=== PATIENT | male | born 1970 | race Two or more races ===

== ENCOUNTER 2024-08-17 16:25 | Inpatient (IN) | payer MEDICAID, SELFPAY ==
[2024-08-17] VITALS (7 sets, daily range): BP systolic 135–154; BP diastolic 70–86; PULSE 92–120; RESP 16–91; TEMP 36.9–39.1; O2SAT 90–96; BMI 30.4
--- NOTE | 2024-08-17 16:51 | XR_ITS ---
Examination: PA lateral chest 2 views TECHNIQUE: Upright PA lateral chest 2 views Exam date and time: August 17, 2024 1713 hours INDICATIONS: Sepsis protocol. FINDINGS: Bilateral diffuse pneumonia, severe in the left lung Normal heart size The osseous structures are intact IMPRESSION: Extensive bilateral pneumonia
--- NOTE | 2024-08-17 16:51 | EKG_ITS ---
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
--- NOTE | 2024-08-17 16:53 | PD.EDADULT ---
ED General RME/HPI General Chief complaint: Flu Like Symptoms Stated complaint: SORE THROAT, WEAKNESS, SOB Time Seen by Provider: 08/17/24 16:51 Arrival date/time: 08/17/24 16:25 CC: Body aches fever chills right leg pain HPI ongoing for the past 15 days. Started antibiotics from PCP with no relief no other family members are ill in the household. The patient has no primary care doctor no primary care diagnosis and takes no medications. Related Data Home Medications ?Medication ?Instructions ?Recorded ?Confirmed benzonatate 100 mg capsule 100 mg PO TID 08/18/24 08/18/24 cetirizine 10 mg tablet 10 mg QDAY 08/18/24 08/18/24 fluticasone propionate 50 1 spray intranasal BID 08/18/24 08/18/24 mcg/actuation nasal spray,suspension Previous Rx's ?Medication ?Instructions ?Recorded blood-glucose sensor (FreeStyle #1 ea 08/19/24 Cory 3 Plus Sensor device) dextromethorphan-guaifenesin 30 1 tab PO BID PRN Cough 30 days #30 08/19/24 mg-600 mg tablet extended tabs hr (Mucinex DM) fluconazole 200 mg tablet 400 mg (2 x 200 mg) PO QDAY 30 08/19/24 days #60 tabs glucagon 0.5 mg/0.1 mL 0.5 mg (0.1 mL) subcut QDAY PRN 08/19/24 subcutaneous auto-injector (Gvoke hypoglycemia #0.1 mL HypoPen 1-Pack) insulin degludec 100 unit/mL (3 20 unit (0.2 mL) subcut HS #15 mL 08/19/24 mL) subcutaneous pen (Tresiba FlexTouch U-100 insulin) lisinopril 10 mg tablet 10 mg PO QDAY #30 tabs 08/19/24 metformin 500 mg tablet 500 mg PO BID #30 tabs 08/19/24 albuterol sulfate 90 mcg/actuation 1 inh inhalation QID PRN shortness 08/20/24 aerosol inhaler of breath or wheezing #6.7 grams levofloxacin 750 mg tablet 750 mg PO QDAY 7 days #7 tabs 08/20/24 pen needle, diabetic 29 gauge x #100 ea 08/20/2408/05 (Ultra-Thin II Insulin Pen [place]) Allergies Allergy/AdvReac Type Severity Reaction Status Date / Time No Known Allergies Allergy Verified 08/17/24 16:33 Review of Systems Review of Systems Narrative Review of Systems: GEN: + fever, + chills, no weight loss, + body aches EYES: No discharge, no visual changes, no pain HEENT: No ear pain, no congestion, no sore throat PULM: No shortness of breath, no cough, no congestion CV: No chest pain, no dyspnea on exertion, no palpitations GI: No nausea, no vomiting, no diarrhea, no pain, no constipation : No frequency, no urgency, no dysuria MUSC/SKEL: No joint pain, no back pain+ rt leg pain SKIN: No rash PSYCH: No hallucinations, no depression HEME/LYMPH: No easy bleeding or bruising tendencies NEURO: No weakness, no headache Past Medical History Past Medical History CARDIAC: Negative Cardiac Disorders or Congestive Heart Failure RESPIRATORY: Negative Chronic Obstructive Pulmonary Disease (COPD) or Asthma GENITOURINARY: Negative Renal Disease ENDOCRINE: Negative Diabetes Mellitus Type 1 or Diabetes Mellitus Type 2 HEMATOLOGIC: Negative Sickle Cell Disease Social History SMOKING STATUS: Former smoker ED Exam Narrative Physical exam: [General: In mild discomfort but not in any acute distress Head normocephalic HEENT: Within acceptable limits Neck is supple nontender Chest equal chest rise nontender to palpation Respiratory: Clear to auscultation no wheezes crackles or rubs CV: Rate rhythm is regular no murmurs rubs or clicks Abdomen is distended secondary to body habitus soft nontender no masses positive bowel sounds all 4 quadrants Back: No CVA tenderness no spinous process tenderness from cervical spine thoracic and lumbar spine Skin: Intact no petechiae rash induration ulceration or crepitus Extremities: Moving all extremities against resistance cap refill less than 2 seconds neurosensory intact Neuro: Awake alert oriented x3 Glascow coma 15 no focal deficits] Course Quality Measures none Orders Category Date Time Status Bedside Blood Glucose ACHS Care 08/17/24 23:54 Completed Bedside COVID-19 Antigen Test NOW Care 08/17/24 16:51 Completed Bedside Influenza A&B Antigen Test NOW Care 08/17/24 16:[address] Screening NOW Care 08/17/24 21:22 Completed Camp Nurse STAT Care 08/17/24 16:51 Completed Continuous Pulse Oximetry STAT Care 08/17/24 16:51 Completed EKG (ED ONLY) *Do not use* NOW Care 08/17/24 16:51 Completed In and Out Catheter X1PRN Care 08/17/24 16:51 Completed Insert IV NOW Care 08/17/24 16:51 Completed NPO STAT Care 08/17/24 16:51 Completed Saline [Insert IV] NOW Care 08/17/24 16:56 Completed Strict Intake and Output Routine Care 08/17/24 16:51 Ordered Consult to General Surgery Routine Cons 08/17/24 23:[address] abdomen pelvis w con Stat Exams 08/17/24 21:21 Completed EKG (ED Only) Stat Exams 08/17/24 16:51 Draft NM HIDA w pharm Routine Exams 08/17/24 23:56 Completed US gall bladder Stat Exams 08/17/24 19:23 Completed US venous doppler LE RT Stat Exams 08/17/24 16:56 Completed XR chest 1V SEPSIS PROTOCOL Stat Exams 08/17/24 16:51 Completed B-Type Natriuretic Peptide Stat Lab 08/17/24 17:10 Completed Beta Hydroxybutyrate Stat Lab 08/17/24 21:07 Completed Blood Culture (Lab) Stat Lab 08/17/24 17:04 Results CBC Stat Lab 08/17/24 17:10 Completed Cocci Serology IgM with reflex to IgG [Cocci Serology, Lab 08/17/24 17:10 Completed Unk History] Stat Comprehensive Metabolic Panel Stat Lab 08/17/24 17:10 Completed Hemoglobin A1C [Glycohemoglobin w (eAG)] Stat Lab 08/17/24 21:07 Completed LDH (Lactate Dehydrogenase) Stat Lab 08/17/24 17:10 Completed Lactate (Lactic Acid) Stat Lab 08/17/24 17:10 Completed Lactic Acid, 3 HR Stat Lab 08/17/24 21:07 Completed Lipase Stat Lab 08/17/24 17:10 Completed Lipid Panel Stat Lab 08/17/24 21:07 Completed Magnesium Stat Lab 08/17/24 17:10 Completed Partial Thromboplastin Time Stat Lab 08/17/24 17:10 Completed Phosphorous Stat Lab 08/17/24 17:10 Completed Procalcitonin Stat Lab 08/17/24 17:10 Completed Prothrombin Time with INR Stat Lab 08/17/24 17:10 Completed Troponin I Stat Lab 08/17/24 17:10 Completed Urinalysis Stat Lab 08/17/24 15:49 Completed Urine Culture Stat Lab 08/17/24 15:49 Completed Acetaminophen Tab [Tylenol Tab] Med 08/17/24 16:56 Discontinued 650 mg PO X1 ONE Dextrose 50% Syr [D50w Syringe Abboject] Med 08/17/24 23:54 Discontinued 25 ml IV Q15MIN PRN Dextrose 50% Syr [D50w Syringe Abboject] Med 08/17/24 23:54 Discontinued 50 ml IV Q15MIN PRN Glucagon Inj Med 08/17/24 23:54 Discontinued 1 mg IM Q15MIN PRN INSULIN LISPRO (AdmeLOG) [HumaLOG] Med 08/18/24 07:30 Discontinued See Protocol SC AC Insulin Glargine Inj [Lantus Inj] Med 08/18/24 09:00 Discontinued 10 unit SC QDAY Piper/Tazo 3.375 gm [Zosyn] Med 08/18/24 06:00 Discontinued 3.375 gm in 50 ml IV Q8HR Piper/Tazo 3.375 gm [Zosyn] Med 08/17/24 23:45 Discontinued 3.375 gm in 50 ml IV X1 Sod Phos Additive [NaPhos Additive] 22.5 mmol Med 08/17/24 23:54 Discontinued Sodium Chloride 0.9% 500 ml [Ns] 500 ml IV X1 Sodium Chloride 0.9% 1000 ml [Ns] 1,000 ml Med 08/17/24 16:57 Discontinued IV 999 mls/hr Sodium Chloride 0.9% 1000 ml [Ns] 1,000 ml Med 08/17/24 16:57 Discontinued IV 999 mls/hr cefTRIAXone/D5w 1gm IV premix [Rocephin/D5w 1gm IV Med 08/17/24 17:30 Discontinued premix] 50 ml IV X1 metroNIDAZOLE/NS 500 MG IVPB [Flagyl 500 mg IV] Med 08/17/24 23:54 Discontinued 500 mg in 100 ml IV X1 Oxygen Delivery NOW RT 08/17/24 16:51 Completed Vital Signs Vital signs: Vital Signs Temperature 102.4 F H 08/17/24 16:53 Pulse Rate 120 H 08/17/24 16:53 Respiratory Rate 28 H 08/17/24 16:53 Blood Pressure 154/80 H 08/17/24 16:53 Pulse Oximetry (%) 90 L 08/17/24 16:53 Oxygen Delivery Method Room Air 08/17/24 16:53 [facility] Patient data External records reviewed:: [facility] previous records Clinical information provided by:: patient Social determinants that could affect healthcare access:: none Patient has the following chronic illnesses:: None How is presenting disease/condition affected by chronic disease/condition?: uneffected by Evaluation data The following diagnostics were reviewed and interpreted by me:: lab results, radiology exam(s) and EKG tracing(s) Lab and/or radiology exams considered but not ordered:: EKG performed at 1658 shows a ventricular rate of 119 NC interval 116 QRS of 85 QTc of 422 sinus tachycardia. CBC shows a leukocytosis of 14.5 no anemia thrombocytopenia Coags within acceptable limits CMP shows a sodium of 128 potassium 3.6 chloride 96 CO2 of 24.5 BUN of 13 creatinine 0.9 with a blood sugar of 377. Transaminitis with a T. bili of 1.3 Lipase of 60 Significant bilateral pneumonia on chest x-ray as interpreted me read by radiology Interpretation Summary: Sepsis pneumonia Medications Medications considered but not ordered:: None Medication administrations:: Medication Administration History Discontinued Medications Acetaminophen (Acetaminophen 325 Mg Tablet) 650 mg PO X1 ONE Stop: 08/17/24 16:57 Last Admin: 08/17/24 17:17 Dose: 650 mg Documented By: Acetaminophen (Acetaminophen 325 Mg Tablet) 650 mg PO Q6H PRN PRN Reason: Fever >101.5 Stop: 09/17/24 00:00 Hydrocodone Bitart/Acetaminophen (Hydrocodone/Apap 5/325 Tablet) 1 tab PO Q4HR PRN PRN Reason: PAIN SCALE 4-6 (Moderate Stop: 08/23/24 00:00 Last Admin: 08/20/24 09:41 Dose: 1 tab Documented By: Admin: 08/19/24 17:46 Dose: 1 tab Documented By: Admin: 08/19/24 02:03 Dose: 1 tab Documented By: MRG Albuterol/Ipratropium (Albuterol/Ipratropium (Duoneb) Rt Vee 3 Ml Nebu) 3 ml INH Q6HRRT PRN PRN Reason: SHORTNESS OF BREATH OR WHEEZE Stop: 09/17/24 06:59 Amoxicillin/Clavulanate Potassium (Amoxicillin/Pot Clav 875 Tablet) 1 tab PO BID THAIS Stop: 08/27/24 08:59 Last Admin: 08/20/24 09:38 Dose: 1 tab Documented By: SHANNEN Dextrose (Dextrose 50%-Water Inj 50 Ml Syringe) 25 ml IV Q15MIN PRN PRN Reason: BG 50-70 responsive npo pt Stop: 09/16/24 23:53 Dextrose (Dextrose 50%-Water Inj 50 Ml Syringe) 50 ml IV Q15MIN PRN PRN Reason: BG <50 OR BG <70 & pt unresponsive Stop: 09/16/24 23:53 Enoxaparin Sodium (Enoxaparin Sod Inj 40 Mg/0.4 Ml Syringe) 40 mg SC QDAY [facility] Stop: 09/01/24 08:59 Last Admin: 08/20/24 09:19 Dose: 40 mg Documented By: Admin: 08/19/24 09:08 Dose: 40 mg Documented By: Admin: 08/18/24 08:05 Dose: 40 mg Documented By: TM Fluconazole (Fluconazole 100 Mg Tablet) 400 mg PO QDAY [facility] Stop: 08/25/24 15:29 Last Admin: 08/20/24 09:20 Dose: 400 mg Documented By: Admin: 08/19/24 09:05 Dose: 400 mg Documented By: Admin: 08/18/24 16:26 Dose: 400 mg Documented By: TM Fluconazole (Fluconazole 100 Mg Tablet) 400 mg PO 1400 [facility] Stop: 08/25/24 13:59 Glucagon (Glucagon Inj 1 Mg Vial) 1 mg IM Q15MIN PRN PRN Reason: BG <70, and no IV access Guaifenesin/Dextromethorphan (Guaifenesin/Dm Tablet) 1 each PO BID PRN PRN Reason: COUGH Stop: 09/17/24 05:40 Sodium Chloride (Ns) 1,000 mls @ 999 mls/hr IV .Q1H1M ONE Stop: 08/17/24 17:57 Last Infusion: 08/17/24 22:27 Dose: Infused Documented By: Admin: 08/17/24 21:08 Dose: 999 mls/hr Documented By: EF Sodium Chloride (Ns) 1,000 mls @ 999 mls/hr IV .Q1H1M ONE Stop: 08/17/24 17:57 Last Infusion: 08/17/24 22:27 Dose: Infused Documented By: Admin: 08/17/24 21:08 Dose: 999 mls/hr Documented By: EF Ceftriaxone Sodium/Dextrose (Rocephin/D5w 1gm Iv Premix) 50 mls @ 100 mls/hr IV X1 ONE Stop: 08/17/24 17:59 Last Infusion: 08/17/24 21:46 Dose: Infused Documented By: Admin: 08/17/24 21:16 Dose: 100 mls/hr Documented By: EF Metronidazole (Flagyl 500 Mg Iv) 500 mg in 100 mls @ 100 mls/hr IV X1 ONE Stop: 08/18/24 00:53 Last Infusion: 08/18/24 02:07 Dose: Infused Documented By: Admin: 08/18/24 01:07 Dose: 100 mls/hr Documented By: EF Sodium Phosphate 22.5 mmol/ (Sodium Chloride) 507.5 mls @ 82.778 mls/hr IV X1 ONE Stop: 08/18/24 06:01 Last Admin: 08/18/24 00:56 Dose: Not Given Documented By: EF Non-Admin Reason: Cancelled by Provider Piperacillin/Tazobactam/Dextrose (Zosyn) 3.375 gm in 50 mls @ 12.5 mls/hr IV Q8HR THAIS Stop: 08/25/24 05:59 Last Admin: 08/20/24 05:14 Dose: 12.5 mls/hr Documented By: Infusion: 08/20/24 01:10 Dose: Infused Documented By: MRSteven Admin: 08/19/24 21:10 Dose: 12.5 mls/hr Documented By: MRSteven Admin: 08/19/24 14:09 Dose: Not Given Documented By: YAJAIRA Non-Admin Reason: Not In Room Infusion: 08/19/24 09:41 Dose: Infused Documented By: Admin: 08/19/24 05:41 Dose: 12.5 mls/hr Documented By: MRSteven Infusion: 08/19/24 01:31 Dose: Infused Documented By: MRSteven Admin: 08/18/24 21:31 Dose: 12.5 mls/hr Documented By: MRSteven Infusion: 08/18/24 20:26 Dose: Infused Documented By: MRSteven Admin: 08/18/24 16:26 Dose: 12.5 mls/hr Documented By: Infusion: 08/18/24 09:58 Dose: Infused Documented By: Admin: 08/18/24 05:58 Dose: 12.5 mls/hr Documented By: AM Piperacillin/Tazobactam/Dextrose (Zosyn) 3.375 gm in 50 mls @ 100 mls/hr IV X1 ONE Stop: 08/18/24 00:14 Last Infusion: 08/18/24 00:47 Dose: Infused Documented By: Admin: 08/18/24 00:17 Dose: 100 mls/hr Documented By: ANDREW Sodium Chloride (Ns) 1,000 mls @ 100 mls/hr IV .Q10H THAIS Stop: 09/17/24 00:14 Last Admin: 08/19/24 09:12 Dose: 100 mls/hr Documented By: Infusion: 08/19/24 08:52 Dose: Infused Documented By: Admin: 08/18/24 22:52 Dose: 100 mls/hr Documented By: Infusion: 08/18/24 21:28 Dose: Infused Documented By: MRSteven Admin: 08/18/24 11:28 Dose: 100 mls/hr Documented By: Infusion: 08/18/24 11:06 Dose: Infused Documented By: Admin: 08/18/24 01:06 Dose: 100 mls/hr Documented By: CLIFF Sterile Water (Sterile Water) Confirm Administered Dose 10 mls @ ud .ROUTE .STK-MED ONE Stop: 08/18/24 13:36 Last Admin: 08/18/24 19:39 Dose: Not Given Documented By: MRSteven Non-Admin Reason: Discontinued Magnesium Sulfate (Magnesium Sulfate Ivpb) 2 gm in 50 mls @ 25 mls/hr IV X1 ONE Stop: 08/19/24 10:15 Last Infusion: 08/19/24 11:05 Dose: Infused Documented By: Admin: 08/19/24 09:05 Dose: 25 mls/hr Documented By: YAJAIRA Insulin Glargine (Insulin Glargine (Lantus) 5 Unit/0.05 Ml (Per 5 Units)) 10 unit SC QDAY THAIS Stop: 09/17/24 08:59 Last Admin: 08/18/24 08:04 Dose: 10 unit Documented By: TRINI Co-signed By: LINDA Insulin Glargine (Insulin Glargine (Lantus) 5 Unit/0.05 Ml (Per 5 Units)) 15 unit SC QDAY [facility] Stop: 09/18/24 08:59 Insulin Glargine (Insulin Glargine (Lantus) 5 Unit/0.05 Ml (Per 5 Units)) 18 unit SC QDAY THAIS Stop: 09/19/24 08:59 Last Admin: 08/20/24 09:18 Dose: 18 unit Documented By: NC Co-signed By: GAT[place]ika Insulin Glargine (Insulin Glargine (Lantus) 5 Unit/0.05 Ml (Per 5 Units)) 3 unit SC X1 ONE Stop: 08/19/24 08:16 Last Admin: 08/19/24 09:07 Dose: 3 unit Documented By: DM Co-signed By: CS Insulin Human Lispro (Insulin Lispro (Admelog) 1 Unit/0.01 Ml Unit) 0 unit SC AC [facility]; Protocol Stop: 09/17/24 07:29 Last Admin: 08/18/24 11:39 Dose: Not Given Documented By: TM Non-Admin Reason: NPO Admin: 08/18/24 08:05 Dose: 4 unit Documented By: TM Co-signed By: CV Insulin Human Lispro (Insulin Lispro (Admelog) 1 Unit/0.01 Ml Unit) 0 unit SC AC [facility]; Protocol Stop: 09/17/24 07:29 Last Admin: 08/20/24 11:51 Dose: 8 unit Documented By: NC Co-signed By: [place] Admin: 08/20/24 07:56 Dose: 4 unit Documented By: NC Co-signed By: [place] Admin: 08/19/24 17:42 Dose: 8 unit Documented By: DM Co-signed By: Admin: 08/19/24 11:53 Dose: 15 unit Documented By: DM Co-signed By: REBECCA Admin: 08/19/24 07:57 Dose: 8 unit Documented By: DM Co-signed By: Admin: 08/18/24 16:15 Dose: Not Given Documented By: TM Non-Admin Reason: NPO Insulin Human Lispro (Insulin Lispro (Admelog) 1 Unit/0.01 Ml Unit) 3 unit SC TIDWM [facility] Stop: 09/18/24 11:59 Last Admin: 08/20/24 11:52 Dose: 3 unit Documented By: NC Co-signed By: [place] Admin: 08/20/24 07:56 Dose: 3 unit Documented By: SHANNEN Co-signed By: [place] Admin: 08/19/24 17:41 Dose: 3 unit Documented By: YAJAIRA Co-signed By: Admin: 08/19/24 11:53 Dose: 3 unit Documented By: YAJAIRA Co-signed By: REBECCA Levofloxacin (Levofloxacin 250 Mg Tablet) 750 mg PO QDAY [facility] Stop: 08/27/24 11:14 Last Admin: 08/20/24 11:51 Dose: 750 mg Documented By: NC Lisinopril (Lisinopril 2.5 Mg Tablet) 10 mg PO QDAY THAIS Stop: 09/18/24 10:29 Last Admin: 08/20/24 09:20 Dose: 10 mg Documented By: Admin: 08/19/24 11:56 Dose: 10 mg Documented By: YAJAIRA Potassium Chloride (Potassium Chloride 20 Meq Tabcr) 20 meq PO X1 ONE Stop: 08/18/24 07:46 Last Admin: 08/18/24 08:05 Dose: 20 meq Documented By: TM Potassium Chloride (Potassium Chloride 20 Meq Tabcr) 20 meq PO X1 ONE Stop: 08/19/24 08:37 Last Admin: 08/19/24 09:06 Dose: 20 meq Documented By: YAJAIRA Potassium Phos/Sodium Phos ([facility]aph,[facility] 1 Packet (1.5 Gm)) 1 packet PO X1 ONE Stop: 08/18/24 00:51 Last Admin: 08/18/24 01:10 Dose: 1 packet Documented By: EF Sodium Chloride (Sodium Chloride Rt 10% 15 Ml Nebu) 5 ml INH X1 ONE Stop: 08/18/24 08:04 Last Admin: 08/18/24 11:15 Dose: Not Given Documented By: AA Non-Admin Reason: not needed None Consultations Consultation(s) initiated? (list below): No Diagnosis Differential Diagnosis ED Complaint MDM: Sepsis pneumonia UTI Most likely diagnosis given after review of the tests above:: Sepsis pneumonia Admission Indicated Admission indicated?: indicated Explain why admission is indicated or not indicated:: Further medical management Admission Request Was there a request for admission?: No Disposition Plan Disposition Plan: Admit Medical Decision Making Differential Diagnosis Differential Diagnosis: Sepsis pneumonia UTI Lab Data 08/20/24 05:37 08/20/24 05:37 Labs: Lab Results 08/17/24 08/17/24 08/17/24 Range/Units 15:49 17:10 21:07 WBC 14.6 H (3.8-10.6) Thou/mm3 RBC 5.02 (4.50-5.90) Miln/mm3 Hgb 15.2 (13.5-16.0) g/dL Hct 42.1 (41.0-53.0) % MCV 84 (80-100) fL MCH 30.3 (25.0-35.0) pg MCHC 36.1 (31.0-37.0) g/dl RDW Std Deviation 39.7 (35.1-43.9) fL Plt Count 174 (140-440) Thou/mm3 Neut % (Auto) 78 (37-80) % Lymph % (Auto) 6 L (10-50) % [place] % (Auto) 7 (0-12) % Eos % (Auto) 7 (0-10) % Baso % (Auto) 0 (0-2.5) % Neut # (Auto) 11.4 H (1.8-7.7) Thou/mm3 Lymph # (Auto) 0.9 L (1.0-4.8) Thou/mm3 [place] # (Auto) 1.0 H (0.0-0.8) Thou/mm3 Eos # (Auto) 1.1 H (0.0-0.5) Thou/mm3 Baso # (Auto) 0.1 (0.0-0.2) Thou/mm3 Immature Gran # (Auto) 0.23 H (0.00-0.00) Thou/mm3 Absolute Nucleated RBC 0.00 (0.00-0.00) Thou/mm3 Immature Gran % 2 H (0-0) % Nucleated RBC % 0 (0) /100 WBC PT 14.2 H (9.0-12.2) Seconds INR 1.3 (0.9-1.3) APTT 27.6 (22.0-36.0) Seconds Sodium 128 L (136-145) mMol/L Potassium 3.6 (3.4-5.1) mMol/L Chloride 96 L (98-107) mMol/L Carbon Dioxide 24.5 (20.0-31.0) mMol/L Anion Gap 8 (7-16) BUN 13 (9-23) mg/dL Creatinine 0.9 (0.6-1.3) mg/dL Estim Creat Clear Calc 103.8 (>60) mL/min eGFR > 60 (60 - ) See Note BUN/Creatinine Ratio 14 (12-20) Ratio Glucose 377 H (74-106) mg/dL Estimated Ave Glu mg/dL 237 H (80-131) mg/dL Hemoglobin A1c 9.9 H (4.8-6.0) % Hgb Calculated Osmolality 272 L (275-295) Lactic Acid 2.6 H 2.0 (0.4-2.0) mMol/L Calcium 8.1 L (8.3-10.6) mg/dL Corrected Calcium 8.9 (8.5-10.1) mg/dL Phosphorus 1.8 L (2.4-5.1) mg/dL Magnesium 2.0 (1.6-2.6) mg/dL Total Bilirubin 1.3 H (0.3-1.2) mg/dL AST 52 H (0-34) U/L ALT 63 H (10-49) U/L Alkaline Phosphatase 309 H (46-116) U/L Lactate Dehydrogenase 270 H (120-246) U/L Troponin I < 0.020 (0.0-0.045) ng/mL B-Natriuretic Peptide < 20 (0-100) pg/mL Total Protein 6.6 (5.7-8.2) gm/dL Albumin 3.0 L (3.5-5.0) gm/dL Globulin 3.6 H (2.3-3.5) gm/dL Albumin/Globulin Ratio 0.8 L (1.2-2.2) Triglycerides 96 (30-150) mg/dL Cholesterol 71 L (132-200) mg/dL LDL Cholesterol, Calc 34 (0-130) mg/dL HDL Cholesterol 18 L (40-60) mg/dL Cholesterol/HDL Ratio 3.9 L (4.0-6.7) RATIO Lipase 60 H (12-53) U/L Beta-Hydroxybutyrate/Acetoacetate 0.2 (<0.6) mmol/L Procalcitonin 0.30 (0.0-0.49) ng/ml Ur Collection Type Clean Catch Urine Color Yellow (Lt Yel-Yel) Urine Clarity Clear (Clear/Hazy) Urine pH 6.5 (5.0-7.0) Ur Specific [place] 1.042 H (1.001-1.035) Urine Protein Trace (Neg - Trace) Urine Glucose (UA) 4+ A (Negative) Urine Ketones Negative (Negative) Urine Blood 1+ A (Negative) Urine Nitrite Negative (Negative) Urine Bilirubin Negative (Negative) Urine Urobilinogen (Auto) 6.0 (0.0-1.0) mg/dL Ur Leukocyte Esterase Negative (Negative) Urine RBC 4 H (0-3) /hpf Urine WBC 1 (0-5) /hpf Ur Squamous Epith Cells 0 (0-5) /hpf Urine Bacteria Rare (None) Coccidioides IgM Ab Positive A (Negative) Hepatitis A IgM Ab (Non React) Hep Bs Antigen (Non React) Hep B Core IgM Ab (Non React) Hepatitis C Antibody (Non React) 08/18/24 Range/Units 00:00 WBC (3.8-10.6) Thou/mm3 RBC (4.50-5.90) Miln/mm3 Hgb (13.5-16.0) g/dL Hct (41.0-53.0) % MCV (80-100) fL MCH (25.0-35.0) pg MCHC (31.0-37.0) g/dl RDW Std Deviation (35.1-43.9) fL Plt Count (140-440) Thou/mm3 Neut % (Auto) (37-80) % Lymph % (Auto) (10-50) % [place] % (Auto) (0-12) % Eos % (Auto) (0-10) % Baso % (Auto) (0-2.5) % Neut # (Auto) (1.8-7.7) Thou/mm3 Lymph # (Auto) (1.0-4.8) Thou/mm3 [place] # (Auto) (0.0-0.8) Thou/mm3 Eos # (Auto) (0.0-0.5) Thou/mm3 Baso # (Auto) (0.0-0.2) Thou/mm3 Immature Gran # (Auto) (0.00-0.00) Thou/mm3 Absolute Nucleated RBC (0.00-0.00) Thou/mm3 Immature Gran % (0-0) % Nucleated RBC % (0) /100 WBC PT (9.0-12.2) Seconds INR (0.9-1.3) APTT (22.0-36.0) Seconds Sodium (136-145) mMol/L Potassium (3.4-5.1) mMol/L Chloride (98-107) mMol/L Carbon Dioxide (20.0-31.0) mMol/L Anion Gap (7-16) BUN (9-23) mg/dL Creatinine (0.6-1.3) mg/dL Estim Creat Clear Calc (>60) mL/min eGFR (60 - ) See Note BUN/Creatinine Ratio (12-20) Ratio Glucose (74-106) mg/dL Estimated Ave Glu mg/dL (80-131) mg/dL Hemoglobin A1c (4.8-6.0) % Hgb Calculated Osmolality (275-295) Lactic Acid (0.4-2.0) mMol/L Calcium (8.3-10.6) mg/dL Corrected Calcium (8.5-10.1) mg/dL Phosphorus (2.4-5.1) mg/dL Magnesium (1.6-2.6) mg/dL Total Bilirubin (0.3-1.2) mg/dL AST (0-34) U/L ALT (10-49) U/L Alkaline Phosphatase (46-116) U/L Lactate Dehydrogenase (120-246) U/L Troponin I (0.0-0.045) ng/mL B-Natriuretic Peptide (0-100) pg/mL Total Protein (5.7-8.2) gm/dL Albumin (3.5-5.0) gm/dL Globulin (2.3-3.5) gm/dL Albumin/Globulin Ratio (1.2-2.2) Triglycerides (30-150) mg/dL Cholesterol (132-200) mg/dL LDL Cholesterol, Calc (0-130) mg/dL HDL Cholesterol (40-60) mg/dL Cholesterol/HDL Ratio (4.0-6.7) RATIO Lipase (12-53) U/L Beta-Hydroxybutyrate/Acetoacetate (<0.6) mmol/L Procalcitonin (0.0-0.49) ng/ml Ur Collection Type Urine Color (Lt Yel-Yel) Urine Clarity (Clear/Hazy) Urine pH (5.0-7.0) Ur Specific [place] (1.001-1.035) Urine Protein (Neg - Trace) Urine Glucose (UA) (Negative) Urine Ketones (Negative) Urine Blood (Negative) Urine Nitrite (Negative) Urine Bilirubin (Negative) Urine Urobilinogen (Auto) (0.0-1.0) mg/dL Ur Leukocyte Esterase (Negative) Urine RBC (0-3) /hpf Urine WBC (0-5) /hpf Ur Squamous Epith Cells (0-5) /hpf Urine Bacteria (None) Coccidioides IgM Ab (Negative) Hepatitis A IgM Ab Non Reactive (Non React) Hep Bs Antigen Non Reactive (Non React) Hep B Core IgM Ab Non Reactive (Non React) Hepatitis C Antibody Non Reactive (Non React) Discharge Plan Plan Patient Disposition: Admit Acute Care w/in Hospital Patient condition on transfer: Stable Problem List Clinical Impression: Sepsis, Bilateral pneumonia
--- NOTE | 2024-08-17 16:53 | PC.NURSE ---
sepsis alert called @[id number]
--- NOTE | 2024-08-17 16:56 | XR_ITS ---
Examination: Duplex scan of the lower extremity, unilateral right complete Date and time of exam: August 17, 2024 1750 hours INDICATIONS: Calf pain beginning 2 days ago Technique: Duplex scan of the extremity veins using B-mode/grayscale imaging and Doppler spectral analysis and color flow Attention is directed to internal echogenicity, compression and augmentation involving these veins, color flow assessment, spectral analysis Findings: Major deep venous structures in the extremity demonstrate normal course and caliber. There is no evidence of deep vein thrombosis. Normal color flow and spectral analysis Impression: Negative for DVT..
[2024-08-17] MEDS: ACETAMINOPHEN 325 MG TABLET 650 MG PO (17:17)
[2024-08-17 17:23] LABS: Lactate (Lactic Acid) 2.6 mMol/L (0.4-2.0)
[2024-08-17 17:27] LABS: Basophils # (Auto) 0.1 Thou/mm3 (0.0-0.2); Basophils % (Auto) 0 % (0-2.5); Eosinophils # (Auto) 1.1 Thou/mm3 (0.0-0.5); Eosinophils % (Auto) 7 % (0-10); Hematocrit 42.1 % (41.0-53.0); Hemoglobin 15.2 g/dL (13.5-16.0); Immature Granulocytes % (Auto) 2 % (0-0); Immature Granulocytes Auto 0.23 Thou/mm3 (0.00-0.00); Lymphocytes # (Auto) 0.9 Thou/mm3 (1.0-4.8); Lymphocytes % (Auto) 6 % (10-50); Mean Corpuscular HGB Conc 36.1 g/dl (31.0-37.0); Mean Corpuscular Hemoglobin 30.3 pg (25.0-35.0); Mean Corpuscular Volume 84 fL (80-100); Monocytes % (Auto) 7 % (0-12); Neutrophils # (Auto) 11.4 Thou/mm3 (1.8-7.7); Neutrophils % (Auto) 78 % (37-80); Nucleated Red Blood Cell % 0 /100 WBC (0); Platelet Count 174 Thou/mm3 (140-440); RDW Standard Deviation 39.7 fL (35.1-43.9); Red Blood Count 5.02 Miln/mm3 (4.50-5.90); White Blood Count 14.6 Thou/mm3 (3.8-10.6)
[2024-08-17 17:43] LABS: B-Type Natriuretic Peptide < 20 pg/mL (0-100)
[2024-08-17 17:47] LABS: INR 1.3 (0.9-1.3); Partial Thromboplastin Time 27.6 Seconds (22.0-36.0); Prothrombin Time 14.2 Seconds (9.0-12.2)
[2024-08-17 17:52] LABS: Alanine Aminotransferase 63 U/L (10-49); Albumin/Globulin Ratio 0.8 (1.2-2.2); Alkaline Phosphatase 309 U/L (46-116); Anion Gap 8 (7-16); Aspartate Amino Transferase 52 U/L (0-34); BUN/Creatinine Ratio 14 Ratio (12-20); Bilirubin,Total 1.3 mg/dL (0.3-1.2); Blood Urea Nitrogen 13 mg/dL (9-23); Calcium 8.1 mg/dL (8.3-10.6); Calcium (Corrected) 8.9 mg/dL (8.5-10.1); Carbon Dioxide 24.5 mMol/L (20.0-31.0); Chloride 96 mMol/L (98-107); Creatinine (Component) 0.9 mg/dL (0.6-1.3); Estimated Creatinine Clearance 103.8 mL/min (>60); Globulin 3.6 gm/dL (2.3-3.5); Glucose 377 mg/dL (74-106); LDH (Lactate Dehydrogenase) 270 U/L (120-246); Lipase 60 U/L (12-53); Osmolality,Calculated 272 (275-295); Phosphorous 1.8 mg/dL (2.4-5.1); Potassium 3.6 mMol/L (3.4-5.1); Sodium 128 mMol/L (136-145); Total Protein 6.6 gm/dL (5.7-8.2); Troponin I < 0.020 ng/mL (0.0-0.045); eGFR > 60 See Note
[2024-08-17 18:13] LABS: Collection Type, Urine Clean Catch; Squamous Epithelial Cell,Urine 0 /hpf (0-5)
[2024-08-17 18:35] LABS: Bacteria,Urine Rare; Bilirubin,Urine Negative (Negative); Blood,Urine 1+ (Negative); Clarity,Urine Clear (Clear/Hazy); Color,Urine Yellow (Lt Yel-Yel); Glucose, Urine 4+ (Negative); Ketones,Urine Negative (Negative); Leukocyte Esterase,Urine Negative (Negative); Nitrite,Urine Negative (Negative); PH,Urine 6.5 (5.0-7.0); Protein,Urine Trace (Neg - Trace); RBC,Urine 4 /hpf (0-3); Specific Gravity,Urine 1.042 (1.001-1.035); WBC,Urine 1 /hpf (0-5)
--- NOTE | 2024-08-17 19:23 | XR_ITS ---
Examination: Abdomen sonogram, Limited Date and time of exam: August 17, 2024 at 2005 hrs. Indications: Elevated total bilirubin and transaminase on laboratory examination today Technique: Real-time christianson scale transabdominal sonographic images of the upper abdomen obtained. Findings: Negative for gallstones Gallbladder wall abnormally thickened 0.97 cm Common bile duct 0.4 cm Pancreatic head 3.6 cm Liver 14.4 cm lobular contour no focal liver lesions Normal hepatopedal portal venous flow Patent IVC Impression: Cholecystitis Enlarged pancreatic head Recommend MR high MRCP abdomen without contrast follow-up to confirm cholecystitis and exclude enlargement of the pancreas versus pancreatitis
[2024-08-17 20:20] LABS: Reflex Lactate? Y
--- NOTE | 2024-08-17 20:33 | PC.NURSE ---
PT NOT IN ROOM YET AT HIS TIME, PT IN ULTRASOUND
[2024-08-17] MEDS: SODIUM CHLORIDE 0.9% 1000 ML 1,000 ML 999 ML IV ×2 (21:08)
[2024-08-17] MEDS: cefTRIAXone/D5w 1gm IV premix 50 ML IV (21:16)
--- NOTE | 2024-08-17 21:21 | XR_ITS ---
Examination: CT abdomen with intravenous contrast CT pelvis with intravenous contrast 2-D coronal reconstructions 2-D sagittal reconstructions Date and time of exam:August 17, 2024 10:00 PM Indications: Fever sore throat one week, cholecystitis on gallbladder sonogram today. CTDI: vol (mGy) 12 point DLP: (mGycm) 677 Technique: Multiple axial sections of the abdomen and pelvis have been obtained. 64 slice high-resolution scanner used. 3 mm axial sections have been obtained, post intravenous injection 60 cc [id number] 2-D sagittal, coronal reconstructions obtained. Low dose protocols were performed. One or more of the following dose reduction techniques were used; automated exposure control, adjustment of the mA and/or KV according to patient size, use of iterative reconstruction technique. Findings: Bilateral pneumonia, significant left base Liver is irregular in contour, cirrhosis pattern with significant splenomegaly Contracted gallbladder with abnormal gallbladder wall thickening No pancreatic mass 2 mm upper pole left renal calculus 4 mm lower pole left renal calculus, no hydronephrosis or ureteral calculi No pericecal inflammatory change No bowel obstruction No diverticulitis Colonic diverticulosis is present No bladder mass No significant prostatomegaly Advanced degenerative disc disease L5-S1 Moderate to advanced hip joint narrowing Impression: Bilateral pneumonia, significant left base Cirrhosis Significant splenomegaly Cholecystitis, contracted gallbladder Nonobstructing left renal calculi No CT findings of appendicitis bowel obstruction or diverticulitis
[2024-08-17 21:25] LABS: Beta Hydroxybutyrate 0.2 mmol/L (<0.6)
--- NOTE | 2024-08-17 22:01 | EDNOTE_ITS ---
Emergency Room Addendum Addendum Narrative: 2030: Care assumed from Bryan Arango NP. Past medical, surgical, social and family history reviewed. Vitals and home medications reviewed. Results and treatment plan discussed. I will assume the care of the patient at this time and will follow the patient, pending US gallbladder. Please refer to the emergency department record for history and examination from initial visit. Sepsis alert initially called at 1650 before the start of my shift. NS IVF started at 2108. 2114: Discussed case with [Dr. Russell] from Hospitalist service regarding admission. Discussed patients ED course, exam findings, labs, and radiology results. The Hospitalist requests a CT abdomen pelvis before admitting the patient due to the patient's thickened gallbladder wall and enlarged pancreatitis. 2349: Dr. Russell accepts the patient for admission. RADIOLOGY RESULTS: [facility] Signed Patient: NATALIYA CRAWFORD [employer]. Record#: [id number] Birthdate: 1970 Age/Sex: 54 / M Location: [facility] Attending Dr: Ordering Physician: Bryan Arango NP Date of Service: 08/17/24 Procedure(s): US gall bladder Accession Number(s): [id number] cc: Bryan Arango NP; Brett Morgan MD; NO PRIMARY/FAMILY,PHYSICIAN~ Examination: Abdomen sonogram, Limited Date and time of exam: August 17, 2024 at 2005 hrs. Indications: Elevated total bilirubin and transaminase on laboratory examination today Technique: Real-time christianson scale transabdominal sonographic images of the upper abdomen obtained. Findings: Negative for gallstones Gallbladder wall abnormally thickened 0.97 cm Common bile duct 0.4 cm Pancreatic head 3.6 cm Liver 14.4 cm lobular contour no focal liver lesions Normal hepatopedal portal venous flow Patent IVC Impression: Cholecystitis Enlarged pancreatic head Recommend MR high MRCP abdomen without contrast follow-up to confirm cholecystitis and exclude enlargement of the pancreas versus pancreatitis Dictated By: Brett Morgan MD Signed By: <Electronically signed by Brett Morgan MD in OV> 08/17/242053 [facility] Report Signed Patient: NATALIYA CRAWFORD [employer]. Record#: [id number] Birthdate: 1970 Age/Sex: 54 / M Location: [facility] Attending Dr: Ordering Physician: Cristopher Batres MD Date of Service: 08/17/24 Procedure(s): CT abdomen pelvis w con Accession Number(s): [id number] cc: Brett Morgan MD; NO PRIMARY/FAMILY,PHYSICIAN; Cristopher Batres MD~ Examination: CT abdomen with intravenous contrast CT pelvis with intravenous contrast 2-D coronal reconstructions 2-D sagittal reconstructions Date and time of exam:August 17, 2024 10:00 PM Indications: Fever sore throat one week, cholecystitis on gallbladder sonogram today. CTDI: vol (mGy) 12 point DLP: (mGycm) 677 Technique: Multiple axial sections of the abdomen and pelvis have been obtained. 64 slice high-resolution scanner used. 3 mm axial sections have been obtained, post intravenous injection 60 cc [id number] 2-D sagittal, coronal reconstructions obtained. Low dose protocols were performed. One or more of the following dose reduction techniques were used; automated exposure control, adjustment of the mA and/or KV according to patient size, use of iterative reconstruction technique. Findings: Bilateral pneumonia, significant left base Liver is irregular in contour, cirrhosis pattern with significant splenomegaly Contracted gallbladder with abnormal gallbladder wall thickening No pancreatic mass 2 mm upper pole left renal calculus 4 mm lower pole left renal calculus, no hydronephrosis or ureteral calculi No pericecal inflammatory change No bowel obstruction No diverticulitis Colonic diverticulosis is present No bladder mass No significant prostatomegaly Advanced degenerative disc disease L5-S1 Moderate to advanced hip joint narrowing Impression: Bilateral pneumonia, significant left base Cirrhosis Significant splenomegaly Cholecystitis, contracted gallbladder Nonobstructing left renal calculi No CT findings of appendicitis bowel obstruction or diverticulitis Dictated By: Brett Morgan MD Signed By: <Electronically signed by Brett Morgan MD in OV> 08/17/24 9508 Critical Care Time: 45 minutes The high probability of sudden, clinically significant deterioration in the patient?s condition required the highest level of my preparedness to intervene urgently. The services I provided to this patient were to treat and/or prevent clinically significant deterioration. Services included the following: chart data review, reviewing nursing notes and/or old charts, documentation time, it consultant collaboration regarding findings and treatment options, medication orders and management, direct patient care, vital sign assessments and ordering, interpreting and reviewing diagnostic studies and lab tests. Aggregate critical care time includes only time during which I was engaged in work directly related to the patient?s care, as described above, whether at bedside or elsewhere in the Emergency Department. It did not include time spent performing other reported procedures or the services of residents, students, nurses or physician assistants.
[2024-08-17 22:54] LABS: Glucose Estimated Average 237 mg/dL (80-131); Hemoglobin A1C 9.9 % Hgb (4.8-6.0)
--- NOTE | 2024-08-17 23:56 | XR_ITS ---
Examination: CONCEPCIÓN, hepatobiliary radioisotope scan Gallbladder ejection fraction study. Date and time of exam: August 18, 2024 1335 hours INDICATIONS: Back pain epigastric pain shortness of breath heartburn months, diagnosis leukemia Technique: 6.4 mCi of 99M Hepatolite administered. Serial imaging then obtained from immediate through 60 minutes. 1.8 mcg selective catheter Kinevac administered for gallbladder ejection fraction study. Findings: Radioisotope activity within the liver is reasonably homogenous. Gallbladder, common bile duct small bowel activity noted Impression: Gallbladder activity Normal gallbladder ejection fraction, 47%, normal greater than 35%
--- NOTE | 2024-08-17 23:56 | EVENTNT_ITS ---
Documentation for date of: 08/17/24 Event Note Event Note: A 54-year-old male presented to the ER with the chief complaint of flu-like symptoms, cough, and back pain. The patient reports that symptoms began approximately 15 days ago. The cough is primarily dry with occasional minimal phlegm, without associated fever until today, when he recorded a temperature of 102.4?F. He denies chest pain, shortness of breath, diarrhea, abdominal pain, or rash. Today, he experienced difficulty walking due to worsening back and foot pain, prompting his visit to the ER. He previously sought care at a [facility], where he was prescribed a five-day course of antibiotics, initiated on Friday, which he has not yet completed. The patient reports no significant improvement in symptoms but denies any worsening. The patient has a history of leukemia diagnosed in 2005, treated with ginette motherapy, and currently in remission. He denies any other medical conditions or current medications. Social history is negative for smoking or alcohol use. No prior surgical history was reported. In the Emergency Department, the patient was initially evaluated with vital signs notable for a temperature of 102.4?F, heart rate of 120 bpm, respiratory rate of 28, blood pressure of 154/80, and oxygen saturation of 90% on room air. Interventions included administration of fluids and initiation of antibiotics. Laboratory studies revealed leukocytosis (WBC 14.6), hyponatremia (sodium 128), hyperglycemia (glucose 377, A1C 9.9), lactic acidosis (2.6), and elevated liver enzymes (AST 52, ALT 63, total bilirubin 1.3). Imaging demonstrated extensive bilateral pneumonia, significant left lower lobe involvement, cirrhosis with splenomegaly, and findings consistent with cholecystitis and a contracted gallbladder. The common bile duct was measured at 0.4 cm. A sepsis alert was called, and the patient was admitted for further management. Assessment and Plan #Sepsis secondary to bilateral pneumonia - Continue empiric broad-spectrum antibiotics - Administer intravenous fluids to address lactic acidosis and optimize perfusion - Monitor closely for signs of worsening organ dysfunction - Initiate supplemental oxygen to maintain oxygen saturation>92% #Acute cholecystitis - Imaging shows a contracted gallbladder, cholecystitis, and a common bile duct measurement of 0.4 cm - HIDA scan - Consult general surgery AM #Cirrhosis with splenomegaly - Hepatitis panel #Hyperglycemia, A1C 9.9% - Initiate sliding-scale insulin for glycemic control
[2024-08-18] VITALS (8 sets, daily range): BP systolic 136–146; BP diastolic 80–89; PULSE 89–98; RESP 17–90; TEMP 36.7–36.9; O2SAT 93–95; BMI 30.3; BMI 30.2
[2024-08-18] MEDS: PIPER/TAZO 3.375 GM 3.375 GM/50 ML BAG IV ×4 (00:17→21:31)
--- NOTE | 2024-08-18 00:35 | PC.NURSE ---
dr. Vargas at bedside
--- NOTE | 2024-08-18 00:44 | PD.RESHP ---
Documentation for date of: 08/18/24 [facility] History of Present Illness Chief complaint: Shortness of breath, cough, weakness, back pain x 15 days History of present illness: Patient is a 54-year-old Bengali-speaking male with past medical history of leukemia in remission since 2007 who presented to the ED on 08/17/2024 with shortness of breath, cough, back pain, poor appetite, and weakness beginning 15 days ago. Other associated symptoms include body aches, chills, sore throat, and fever starting today. Patient completed 4 out of 5 days of azithromycin prescribed by [facility] but due to worsening of symptoms he came to the ED. The back pain is described as central with some radiation to the right shoulder. Patient denies any history of similar symptoms or ever being diagnosed with pneumonia. Patient denies any abdominal pain at this time, nausea, or vomiting. He denies recent sick contacts. ED Course: -Initial vitals were BP 154/80, HR 120, RR 28, Temp 102.4, O2 90% on room air. -Labs significant for WBC 14.6, glucose 377, Hgb A1c 9.9, lactic acid 2.6->2.0, phosphorus 1.8, total bilirubin 1.3, AST 52, ALT 63, alk phos 309, lipase 60, procal 0.30 -CXR showed extensive bilateral pneumonia -COVID, flu negative -RLE venous Doppler showed no DVT -Gallbladder US showed cholecystitis, enlarged pancreatic head. -CT abdomen/pelvis with con showed bilateral pneumonia, significant left base, cirrhosis, significant splenomegaly, cholecystitis with contracted gallbladder, nonobstructing left renal calculi. -In the ED, patient was given acetaminophen 650 mg x1, 2L NS IV fluid bolus, ceftriaxone 1 g IV x1, metronidazole 500 ml IV x1 -Patient was admitted for sepsis secondary to pneumonia, surgery also consulted for cholecystitis Review of Systems Review of systems otherwise negative except what is mentioned above. Past Medical History Past Medical History Comments [facility] COMMENT: Past Medical History: Leukemia, diagnosed in 2005 and in remission since 2007 Family History: Diabetes in mother and brother Surgical History: None Social History: Denies history of smoking, current alcohol use variable, not daily but up to 12 beers on weekends, denies recreational drug use Current Medications: No daily medications (Recently prescribed azithromycin, benzonatate, cetirizine, and fluticasone by clinic) Allergies: No known drug allergies Exam Vital Signs Temp Pulse Resp BP Pulse Ox O2 Del Method O2 Flow Rate 98.9 F 92 20 153/86 H 93 L Nasal Cannula 4 08/17/24 23:00 08/17/24 23:00 08/17/24 23:00 08/17/24 23:00 08/17/24 23:00 08/17/24 23:00 08/17/24 23:00 Narrative Exam Physical Exam General: Awake and in no acute distress. Conversational and non-toxic appearing. HEENT: Normocephalic, atraumatic, mucous membranes moist. Heart: Regular rate and rhythm, no murmurs. Lungs: Clear to auscultation with no wheezing or crackles. Abdomen: Soft, obese, nontender, positive bowel sounds. ?No guarding or rebound tenderness. Negative Puente's sign. Back: Tenderness to palpation midline lumbar area. No area of fluctuance, erythema, or ecchymosis. Neurologic: Alert and oriented x3, no gross neurological deficit, and patient able to move all 4 extremities. Extremities: No edema. Skin: No rash or ecchymoses. Results: Labs 08/18/24 04:29 08/17/24 17:10 Labs: Short CBC 08/17/24 Range/Units 17:10 WBC 14.6 H (3.8-10.6) Thou/mm3 Hgb 15.2 (13.5-16.0) g/dL Hct 42.1 (41.0-53.0) % Plt Count 174 (140-440) Thou/mm3 BMP 08/17/24 17:10 Sodium 128 L Potassium 3.6 Chloride 96 L Carbon Dioxide 24.5 BUN 13 Creatinine 0.9 Glucose 377 H Calcium 8.1 L Cardiac Enzymes 08/17/24 Range/Units 17:10 Troponin I < 0.020 (0.0-0.045) ng/mL Liver Function 08/17/24 Range/Units 17:10 Total Bilirubin 1.3 H (0.3-1.2) mg/dL AST 52 H (0-34) U/L ALT 63 H (10-49) U/L Alkaline Phosphatase 309 H (46-116) U/L Albumin 3.0 L (3.5-5.0) gm/dL Urine 08/17/24 Range/Units 15:49 Urine Color Yellow (Lt Yel-Yel) Urine Clarity Clear (Clear/Hazy) Urine pH 6.5 (5.0-7.0) Ur Specific [place] 1.042 H (1.001-1.035) Urine Protein Trace (Neg - Trace) Urine Glucose (UA) 4+ A (Negative) Quality Measures Quality Measures VTE prophylaxis Medications Home Medications and Allergies Home Medications ?Medication ?Instructions ?Recorded ?Confirmed ?Type azithromycin 250 mg tablet 250 mg QDAY 08/18/24 08/18/24 History benzonatate 100 mg capsule 100 mg PO TID 08/18/24 08/18/24 History cetirizine 10 mg tablet 10 mg QDAY 08/18/24 08/18/24 History fluticasone propionate 50 1 spray intranasal BID 08/18/24 08/18/24 History mcg/actuation nasal spray,suspension Allergies Allergy/AdvReac Type Severity Reaction Status Date / Time No Known Allergies Allergy Verified 08/17/24 16:33 Visit Medications Acetaminophen (Acetaminophen 325 Mg Tablet) 650 mg PO Q6H PRN PRN Reason: Fever >101.5 Stop: 09/17/24 00:00 Hydrocodone Bitart/Acetaminophen (Hydrocodone/Apap 5/325 Tablet) 1 tab PO Q4HR PRN PRN Reason: PAIN SCALE 4-6 (Moderate Stop: 08/23/24 00:00 Dextrose (Dextrose 50%-Water Inj 50 Ml Syringe) 25 ml IV Q15MIN PRN PRN Reason: BG 50-70 responsive npo pt Stop: 09/16/24 23:53 Dextrose (Dextrose 50%-Water Inj 50 Ml Syringe) 50 ml IV Q15MIN PRN PRN Reason: BG <50 OR BG <70 & pt unresponsive Stop: 09/16/24 23:53 Enoxaparin Sodium (Enoxaparin Sod Inj 40 Mg/0.4 Ml Syringe) 40 mg SC QDAY THAIS Stop: 09/01/24 08:59 Glucagon (Glucagon Inj 1 Mg Vial) 1 mg IM Q15MIN PRN PRN Reason: BG <70, and no IV access Metronidazole (Flagyl 500 Mg Iv) 500 mg in 100 mls @ 100 mls/hr IV X1 ONE Stop: 08/18/24 00:53 Sodium Phosphate 22.5 mmol/ (Sodium Chloride) 507.5 mls @ 82.778 mls/hr IV X1 ONE Stop: 08/18/24 06:01 Piperacillin/Tazobactam/Dextrose (Zosyn) 3.375 gm in 50 mls @ 100 mls/hr IV Q6HR THAIS Stop: 08/24/24 23:54 Sodium Chloride (Ns) 1,000 mls @ 100 mls/hr IV .Q10H THAIS Stop: 09/17/24 00:14 Insulin Glargine (Insulin Glargine (Lantus) 5 Unit/0.05 Ml (Per 5 Units)) 10 unit SC QDAY THAIS Stop: 09/17/24 08:59 Insulin Human Lispro (Insulin Lispro (Admelog) 1 Unit/0.01 Ml Unit) 0 unit SC AC THAIS; Protocol Stop: 09/17/24 07:29 Discontinued Medications Acetaminophen (Acetaminophen 325 Mg Tablet) 650 mg PO X1 ONE Stop: 08/17/24 16:57 Last Admin: 08/17/24 17:17 Dose: 650 mg Sodium Chloride (Ns) 1,000 mls @ 999 mls/hr IV .Q1H1M ONE Stop: 08/17/24 17:57 Last Infusion: 08/17/24 22:27 Dose: Infused Sodium Chloride (Ns) 1,000 mls @ 999 mls/hr IV .Q1H1M ONE Stop: 08/17/24 17:57 Last Infusion: 08/17/24 22:27 Dose: Infused Ceftriaxone Sodium/Dextrose (Rocephin/D5w 1gm Iv Premix) 50 mls @ 100 mls/hr IV X1 ONE Stop: 08/17/24 17:59 Last Infusion: 08/17/24 21:46 Dose: Infused Piperacillin/Tazobactam/Dextrose (Zosyn) 3.375 gm in 50 mls @ 100 mls/hr IV X1 ONE Stop: 08/18/24 00:14 Last Admin: 08/18/24 00:17 Dose: 100 mls/hr Assessment & Plan Plan 54-year-old Bengali-speaking male with past medical history of leukemia in remission since 2007 who presented to the ED on 08/17/2024 with shortness of breath, cough, back pain, poor appetite, and weakness beginning 15 days ago, found to have bilateral pneumonia and cholecystitis on imaging and admitted for further management. #Sepsis, secondary to #Community acquired pneumonia Patient met 4/4 SIRS criteria with HR 120, RR 28, Temp 102.4, and WBC 14.6, and sepsis source pneumonia. CXR shows bilateral infiltrate confirmed on CT, significant in the left lower lung. -Zosyn 3.375 g q6h -Cocci IgM and IgG pending -Blood cultures pending -Urine culture pending -Acetaminophen as needed for fever or pain -Zofran as needed for nausea -Ray 5-325 as needed for severe pain -DuoNebs as needed -Mucinex as needed -NS IV fluid at 100 ml/hr -Supplemental oxygen, wean as tolerated #Cholecystitis Gallbladder US and CT abdomen/pelvis showed cholecystitis. Patient is not endorsing any abdominal pain, nausea, or vomiting. However, he does endorse mid back pain with radiation to the right shoulder blade, can be an atypical presentation of cholecystitis due to referred pain. US was also suspicious for enlargement of pancreatic head and suggested MRCP to confirm cholecystitis and exclude enlargement of the pancreas versus pancreatitis, however CT was done which does not show any pancreatic masses or enlargement. Therefore HIDA scan was ordered to evaluate biliary tree given elevated total bilirubin 1.3, alk phos 309 on admission. -General surgery was consulted, please reach out in the morning -HIDA scan to confirm cholecystitis, rule out biliary duct obstruction -Serial abdominal examination #Hyperglycemia #Newly diagnosed type 2 diabetes On admission initial glucose 377. A1c 9.9. Patient is not aware of any previous diagnosis of diabetes. Patient was informed and educated on this diagnosis at the time of admission. -Held home medications -Bedside blood glucose checks AC -Insulin glargine 10 U daily -Insulin lispro sliding scale, adjusted as necessary -Carb consistent low diet -Consulted quality lab technician -Diabetes education #Cirrhosis #Splenomegaly #History of leukemia CT abdomen/pelvis showed cirrhosis and significant splenomegaly. ALT 63 greater than AST 52, as patient is obese possibly secondary to fatty liver disease. Patient does endorse history of alcohol use, reporting not daily use but sometimes up to 12 beers a day on weekends. Patient was informed of cirrhosis findings found on imaging, denies known history. Splenomegaly can also be associated with leukemia, even after remission. MELD-Na score 19 Hepatitis panel negative -Educated on reduction of alcohol intake -Monitor liver panel DVT prophylaxis: Lovenox 40 U subQ GI prophylaxis: None Diet: Carb consistent Fuentes: None Lines: Peripheral IV Antibiotics: Zosyn [08/18/2023- ] CODE STATUS: FULL Reason for hospitalization: Community acquired pneumonia Patient plan of care was discussed with the attending physician, Dr. Russell. Nasreen Vargas, PGY-2 Attending Provider Attestation/Addendum Pt was evaluated and plan formulated together with the housestaff team. I have reviewed the residents note above and agree with most of its content. Please refer to the residents note for additional details.
--- NOTE | 2024-08-18 00:53 | PC.NURSE ---
per dr. Vargas patient okay to drink fluids
[2024-08-18 00:55] LABS: Cardiac Risk Estimate 3.9 RATIO (4.0-6.7); Cholesterol 71 mg/dL (132-200); HDL Cholesterol 18 mg/dL (40-60); LDL Cholesterol,Calculated 34 mg/dL (0-130); Triglycerides 96 mg/dL (30-150)
[2024-08-18] MEDS: SODIUM CHLORIDE 0.9% 1000 ML 1,000 ML 100 ML IV ×3 (01:06→22:52)
[2024-08-18] MEDS: metroNIDAZOLE/NS 500 MG IVPB 500 MG/100 ML BAG 100 MG IV (01:07)
[2024-08-18] MEDS: NAPH,KPH MBDB 1 PACKET (1.5 GM) PO (01:10)
--- NOTE | 2024-08-18 02:46 | PC.NURSE ---
REPORT CALLED AND GIVEN TO RICH STALLINGS.
[2024-08-18 03:17] LABS: Hepatitis A Antibody IgM Non Reactive (Non React); Hepatitis B Core Antibody IgM Non Reactive (Non React); Hepatitis B Surface Antigen Non Reactive (Non React); Hepatitis C Antibody Non Reactive (Non React)
[2024-08-18 05:30] LABS: Basophils # (Auto) 0.1 Thou/mm3 (0.0-0.2); Basophils % (Auto) 1 % (0-2.5); Eosinophils # (Auto) 1.1 Thou/mm3 (0.0-0.5); Eosinophils % (Auto) 8 % (0-10); Hematocrit 38.5 % (41.0-53.0); Hemoglobin 13.8 g/dL (13.5-16.0); Immature Granulocytes % (Auto) 1 % (0-0); Immature Granulocytes Auto 0.18 Thou/mm3 (0.00-0.00); Lymphocytes # (Auto) 0.9 Thou/mm3 (1.0-4.8); Lymphocytes % (Auto) 7 % (10-50); Mean Corpuscular HGB Conc 35.8 g/dl (31.0-37.0); Mean Corpuscular Hemoglobin 30.5 pg (25.0-35.0); Mean Corpuscular Volume 85 fL (80-100); Monocytes % (Auto) 7 % (0-12); Neutrophils # (Auto) 9.8 Thou/mm3 (1.8-7.7); Neutrophils % (Auto) 76 % (37-80); Nucleated Red Blood Cell % 0 /100 WBC (0); Platelet Count 156 Thou/mm3 (140-440); RDW Standard Deviation 40.5 fL (35.1-43.9); Red Blood Count 4.52 Miln/mm3 (4.50-5.90)
[2024-08-18 06:04] LABS: Anion Gap 6 (7-16); BUN/Creatinine Ratio 19 Ratio (12-20); Blood Urea Nitrogen 13 mg/dL (9-23); Calcium 7.6 mg/dL (8.3-10.6); Carbon Dioxide 25.2 mMol/L (20.0-31.0); Chloride 101 mMol/L (98-107); Creatinine (Component) 0.7 mg/dL (0.6-1.3); Estimated Creatinine Clearance 133.4 mL/min (>60); Glucose 301 mg/dL (74-106); Osmolality,Calculated 275 (275-295); Potassium 3.5 mMol/L (3.4-5.1); Sodium 132 mMol/L (136-145); eGFR > 60 See Note
[2024-08-18] MEDS: INSULIN GLARGINE (Lantus) 5 UNIT/0.05 ML (PER 5 UNITS) 10 UNIT SC (08:04)
[2024-08-18] MEDS: ENOXAPARIN SOD INJ 40 MG/0.4 ML SYRINGE SC (08:05)
[2024-08-18] MEDS: POTASSIUM CHLORIDE 20 mEq TABCR PO (08:05)
[2024-08-18] MEDS: INSULIN LISPRO (AdmeLOG) 1 UNIT/0.01 ML UNIT SC (08:05)
[2024-08-18 08:41] LABS: Prostate Specific Antigen 1.09 ng/mL (0-4.00)
--- NOTE | 2024-08-18 09:06 | PC.NURSE ---
Dr. Baker at bedside speaking with patient.
--- NOTE | 2024-08-18 10:45 | CHAP ---
Prayed with patient and family member.
--- NOTE | 2024-08-18 11:16 | PC.RT ---
sputum sent to lab
--- NOTE | 2024-08-18 12:13 | PC.SS ---
Patient Remi Gordon is a 54 Year old male admitted for PNA. SS met with patient at bedside to discuss discharge plan. Patient reports he lives at home with his , More [place] [phone]. Patient reports that prior to admission he did not utilize any source of DME to assist with ambulation. Patient's PCP is [place]. Choice of pharmacy is [facility]. At time of discharge patient's will provide transportation. Next of Kin: , More Discharge Plan: Home
[2024-08-18 12:53] LABS: Phosphorous 2.7 mg/dL (2.4-5.1)
--- NOTE | 2024-08-18 13:21 | ESPR_ITS ---
<Statement entered by Hipolito Baker MD - 08/18/24 15:25> Patient was seen and examined at the bedside. Patient is admitted overnight with past medical history of leukemia in remission due to sepsis likely secondary to community-acquired pneumonia and acute cholecystitis concerns. Patient is currently pending on blood cultures and urine cultures. CT abdomen showed liver cirrhosis with acute cholecystitis pattern therefore surgery was consulted. We are treating pneumonia and cholecystitis with IV Zosyn. Additionally, we are waiting on HIDA scan. Patient reported that he has a history of alcohol drinking however he did not report drinking it excessively hep panel was negative. This morning blood pressure was stable. Patient was currently saturating 90% on 4 L NC and denied using home oxygen. Labs showed hemoglobin stable and white count 13. Potassium was 3.5. Blood sugars were elevated at 301. A1c 9.8. Patient's LFTs were elevated with T. bili of 1.3. LDH 270. Will follow-up on the HIDA scan and continue Lantus as his new onset diabetes. Dietitian recommended if patient will be sent on long-acting insulin patient will likely be approve for CGM. Per surgery recommendations once HIDA scan is done and if it is negative he will would not go for any active intervention however if it is significant we will likely decide for possible operative procedure or drain placement. Patient reported that he had fever spikes shortness of breath and productive cough from last 15 days. PSA level was sent for hematuria seen on UA. Patient is currently n.p.o. for procedure. Electrolytes were repleted. Cocci serology came back positive and fluconazole was started. All labs and orders were reviewed. I saw and examined the patient, and I agree with current management stated by Dr Sacha MD,PGY1. Plan of care was discussed with the attending physician and resident physician. Disclaimer: Despite multiple revisions, due to the dictation software being used, the document bellow may not be free of grammatical errors including phonetic/typographic errors. However, this does not deter from our commitment to providing health care in the patient's best interest in mind. Dr. Samuel MD, PGY 2 Documentation for date of: 08/18/24 Subjective Subjective Interval history: Patient is a 54-year-old male with a past medical history of leukemia who was admitted for bilateral pneumonia and HIDA scan for cholecystitis as noted on ultrasound gallbladder. Patient's stated symptoms began about 15 days ago with an overall dry cough, subjective fevers at night, chills positive, and worse at night. Patient stated he has had a 10 pound weight loss within the last 15 days. Patient denied shoulder pain, positive for only pleuritic pain posterior thorax. Negative Puente sign and denied abdominal pain. Negative history of TB. Denied history of diabetes. New diagnosis with an A1c of 9.9 on admission. Denied hematemesis or hemoptysis. Denied melena or hematochezia. Keep patient NPO until final recommendations by surgery. Denied history of alcohol use disorder. Exam Vital Signs Temp Pulse Resp BP Pulse Ox O2 Del Method O2 Flow Rate 98.0 F 90 17 138/83 H 93 L Nasal Cannula 4 08/18/24 08:00 08/18/24 08:00 08/18/24 08:00 08/18/24 08:00 08/18/24 08:00 08/18/24 08:00 08/18/24 08:00 Narrative Exam General Appearance: Alert & Oriented X3, well-nourished [sex] who is lying in bed in [no acute distress] HEENT: Skull symmetrical and atraumatic. Conjunctivae pin and moist. Pupils equal, round, reactive to light and accommodation (PERRL). External ear without lesion or discharge. Straight, nares patient, mucosa pink, no discharge. No thyroid nodule appreciated. No cervical lymphadenopathy. Cardio: Normal Rate and Rhythm with S1 and S2 heart sounds. No murmurs or extra heart sounds auscultated. No bruits on carotid auscultation. No peripheral edema or cyanosis. Lungs: Symmetric with good expansion. Chest and back non-tender. Breath sounds vesicular without crackles, wheezing or rhonchi Abdomen: Non-tender, Non-distended, Normal Reactive Bowel Sounds Neuro: Alert, cooperative, oriented to person, place, and time. Speech clear. CN grossly intact. Upper motor strength 5/5 and Lower motor strength 5/5. Sensation intact. Objective Labs 08/20/24 05:37 08/20/24 05:37 Labs: Laboratory Results - last 24 hr 08/17/24 08/17/24 08/17/24 15:49 17:10 21:07 WBC 14.6 H RBC 5.02 Hgb 15.2 Hct 42.1 MCV 84 MCH 30.3 MCHC 36.1 RDW Std Deviation 39.7 Plt Count 174 Neut % (Auto) 78 Lymph % (Auto) 6 L [place] % (Auto) 7 Eos % (Auto) 7 Baso % (Auto) 0 Neut # (Auto) 11.4 H Lymph # (Auto) 0.9 L [place] # (Auto) 1.0 H Eos # (Auto) 1.1 H Baso # (Auto) 0.1 Immature Gran # (Auto) 0.23 H Absolute Nucleated RBC 0.00 Immature Gran % 2 H Nucleated RBC % 0 PT 14.2 H INR 1.3 APTT 27.6 Sodium 128 L Potassium 3.6 Chloride 96 L Carbon Dioxide 24.5 Anion Gap 8 BUN 13 Creatinine 0.9 Estim Creat Clear Calc 103.8 eGFR > 60 BUN/Creatinine Ratio [address] Glu mg/dL 237 H Hemoglobin A1c 9.9 H Calculated Osmolality 272 L Lactic Acid 2.6 H 2.0 Calcium 8.1 L Corrected Calcium 8.9 Phosphorus 1.8 L Magnesium 2.0 Total Bilirubin 1.3 H AST 52 H ALT 63 H Alkaline Phosphatase 309 H Lactate Dehydrogenase 270 H Troponin I < 0.020 B-Natriuretic Peptide < 20 Total Protein 6.6 Albumin 3.0 L Globulin 3.6 H Albumin/Globulin Ratio 0.8 L Triglycerides 96 Cholesterol 71 L LDL Cholesterol, Calc 34 HDL Cholesterol 18 L Cholesterol/HDL Ratio 3.9 L Lipase 60 H Prostate Specific Ag Beta-Hydroxybutyrate/Acetoacetate 0.2 Procalcitonin 0.30 Ur Collection Type Clean Catch Urine Color Yellow Urine Clarity Clear Urine pH 6.5 Ur Specific [place] 1.042 H Urine Protein Trace Urine Glucose (UA) 4+ A Urine Ketones Negative Urine Blood 1+ A Urine Nitrite Negative Urine Bilirubin Negative Urine Urobilinogen (Auto) 6.0 Ur Leukocyte Esterase Negative Urine RBC 4 H Urine WBC 1 Ur Squamous Epith Cells 0 Urine Bacteria Rare Hepatitis A IgM Ab Hep Bs Antigen Hep B Core IgM Ab Hepatitis C Antibody 08/18/24 08/18/24 00:00 04:29 WBC 13.0 H RBC 4.52 Hgb 13.8 Hct 38.5 L MCV 85 MCH 30.5 MCHC 35.8 RDW Std Deviation 40.5 Plt Count 156 Neut % (Auto) 76 Lymph % (Auto) 7 L [place] % (Auto) 7 Eos % (Auto) 8 Baso % (Auto) 1 Neut # (Auto) 9.8 H Lymph # (Auto) 0.9 L [place] # (Auto) 1.0 H Eos # (Auto) 1.1 H Baso # (Auto) 0.1 Immature Gran # (Auto) 0.18 H Absolute Nucleated RBC 0.00 Immature Gran % 1 H Nucleated RBC % 0 PT INR APTT Sodium 132 L Potassium 3.5 Chloride 101 Carbon Dioxide 25.2 Anion Gap 6 L BUN 13 Creatinine 0.7 Estim Creat Clear Calc 133.4 eGFR > 60 BUN/Creatinine Ratio 19 Glucose [address] Glu mg/dL Hemoglobin A1c Calculated Osmolality 275 Lactic Acid Calcium 7.6 L Corrected Calcium Phosphorus 2.7 Magnesium 2.0 Total Bilirubin AST ALT Alkaline Phosphatase Lactate Dehydrogenase Troponin I B-Natriuretic Peptide Total Protein Albumin Globulin Albumin/Globulin Ratio Triglycerides Cholesterol LDL Cholesterol, Calc HDL Cholesterol Cholesterol/HDL Ratio Lipase Prostate Specific Ag 1.09 Beta-Hydroxybutyrate/Acetoacetate Procalcitonin Ur Collection Type Urine Color Urine Clarity Urine pH Ur Specific [place] Urine Protein Urine Glucose (UA) Urine Ketones Urine Blood Urine Nitrite Urine Bilirubin Urine Urobilinogen (Auto) Ur Leukocyte Esterase Urine RBC Urine WBC Ur Squamous Epith Cells Urine Bacteria Hepatitis A IgM Ab Non Reactive Hep Bs Antigen Non Reactive Hep B Core IgM Ab Non Reactive Hepatitis C Antibody Non Reactive Quality Measures Quality Measures VTE prophylaxis Assessment & Plan Assessment Current Active Medications: Generic Name Dose Route Start Last Admin Trade Name Freq PRN Reason Stop Dose Admin Acetaminophen 650 mg 08/18/24 00:01 Acetaminophen 325 Mg Tablet PO 09/17/24 00:00 Q6H PRN Fever >101.5 Hydrocodone Bitart/Acetaminophen 1 tab 08/18/24 00:01 Hydrocodone/Apap 5/325 Tablet PO 08/23/24 00:00 Q4HR PRN PAIN SCALE 4-6 (Moderate Albuterol/Ipratropium 3 ml 08/18/24 05:41 Albuterol/Ipratropium (Duoneb) Rt Vee 3 Ml Nebu INH 09/17/24 06:59 Q6HRRT PRN SHORTNESS OF BREATH OR WHEEZE Dextrose 25 ml 08/17/24 23:54 Dextrose 50%-Water Inj 50 Ml Syringe IV 09/16/24 23:53 Q15MIN PRN BG 50-70 responsive npo pt Dextrose 50 ml 08/17/24 23:54 Dextrose 50%-Water Inj 50 Ml Syringe IV 09/16/24 23:53 Q15MIN PRN BG <50 OR BG <70 & pt unresponsive Enoxaparin Sodium 40 mg 08/18/24 09:00 08/18/24 08:05 Enoxaparin Sod Inj 40 Mg/0.4 Ml Syringe SC 09/01/24 08:59 40 mg QDAY THAIS Administration Glucagon 1 mg 08/17/24 23:54 Glucagon Inj 1 Mg Vial IM Q15MIN PRN BG <70, and no IV access Guaifenesin/Dextromethorphan 1 each 08/18/24 05:41 Guaifenesin/Dm Tablet PO 09/17/24 05:40 BID PRN COUGH Piperacillin/Tazobactam/Dextrose 3.375 gm in 50 mls @ 12.5 mls/hr 08/18/24 06:00 08/18/24 05:58 Zosyn IV 08/25/24 05:59 12.5 mls/hr Q8HR THAIS Administration Sodium Chloride 1,000 mls @ 100 mls/hr 08/18/24 00:15 08/18/24 11:28 Ns IV 09/17/24 00:14 100 mls/hr .Q10H THAIS Administration Insulin Glargine 15 unit 08/19/24 09:00 Insulin Glargine (Lantus) 5 Unit/0.05 Ml (Per 5 Units) SC 09/18/24 08:59 QDAY THAIS Insulin Human Lispro 0 unit 08/18/24 11:47 Insulin Lispro (Admelog) 1 Unit/0.01 Ml Unit SC 09/17/24 07:29 AC THAIS Protocol Plan Patient is a 54 year old male with past medical history of leukemia in remission since 2007 who presented to the ED on 08/17/2024 with shortness of breath, cough, back pain, poor appetite, and weakness beginning 15 days ago, found to have bilateral pneumonia and cholecystitis on imaging and admitted for further management. #Sepsis, secondary to Pneumonia, improving #Pneumonia Cocci. Patient met 4/4 SIRS criteria with HR 120, RR 28, Temp 102.4, and WBC 14.6, and sepsis source pneumonia. CXR shows bilateral infiltrate confirmed on CT, significant in the left lower lung. Plan: -Zosyn 3.375 g q8h (08/18/2024) continue until blood cultures negative. -Blood 24 hours negative-penidng final results -Urine culture pending -Acetaminophen as needed for fever or pain -Zofran as needed for nausea -[place] 5-325 as needed for severe pain -DuoNebs as needed -Mucinex as needed -NS IV fluid at 100 ml/hr, renewed given patient NPO, stop if diet is resumed. -Chest physiology -Supplemental oxygen, wean as tolerated #Cholecystitis-asymptomatic On physical exam Puente sign negative, patient denied shoulder pain, patient denied abdominal tenderness. Positive for pleuritic pain, mostly localized to posterior back. Total bili slightly elevated at 1.3. Transaminitis likely secondary to reactive given cocci pneumonia. HIDA scan negative, normal gallbladder ejection fraction. Diagnostics: HIDA negative; gallbladder wall abnormality thickened 0.97 enlarged pancreatic head. Abdomen/pelvis CT cholecystitis contracted gallbladder. Plan: -HIDA scan negative -General surgery was consulted, Dr Begum: Pending final recommendations #Hyperglycemia #Newly diagnosed type 2 diabetes On admission initial glucose 377. A1c 9.9. Patient is not aware of any previous diagnosis of diabetes. Patient was informed and educated on this diagnosis at the time of admission. Patient does not meet criteria for high-dose or moderate dose statins. Plan -Insulin glargine 15 U daily -Insulin lispro sliding scale, adjusted as necessary -Carb consistent low diet -Consulted presiding judge -Diabetes education #Cirrhosis #Splenomegaly #History of leukemia CT abdomen/pelvis showed cirrhosis and significant splenomegaly. ALT 63 greater than AST 52, as patient is obese possibly secondary to fatty liver disease. Patient denied heavy alcohol use, stated only drinks alcohol occasionally/socially. Splenomegaly can also be associated with leukemia, even after remission. Hepatitis negative. Patient is not sure of chem therapy name but was diagnosed in 2005 and entered remission in 2007. MELD-Na score 19 Plan: -Educated on reduction of alcohol intake -Monitor liver panel #Elevated Transiminitis #Elevated total bili On admission patient had elevated AST's and ALT's. Patient denied history of alcohol use disorder and only drinks occasionally. Patient has a history of chemotherapy. Patient tested positive for cocci breast reactive transaminitis likely. Hepatitis panel negative. Consider HIV testing . Plan Continue to monitor AST's and ALT's #Nonobstructing left renal calculi, incidental finding DVT prophylaxis: Lovenox 40 U subQ GI prophylaxis: None Diet: N.p.o. given HIDA scan and pending final recommendations surgery --> no surgery planned may proceed to low carb consistent diet. Fuentes: None Lines: Peripheral IV CODE STATUS: FULL Attending Provider Attestation/Addendum I have discussed and was present for the essential components of the history, physical examination, diagnosis, and treatment plan with the resident. I agree with the patient's care as documented by the resident and amended herein by me. Elieser Morgan DO. Although this document has been carefully reviewed, there may still be some phonetic and other typographical errors. These errors are purely grammatical due to imperfections in the software program and should not be construed in any way to compromise the substance of the patient's medical care during this visit.
[2024-08-18 14:17] LABS: Cocci Serology, IgM Positive (Negative)
[2024-08-18 14:18] LABS: Cocid Sro, CF/ID (UCD) NO CHG* See Sep Rpt
--- NOTE | 2024-08-18 15:17 | PC.LAC ---
Dr. Oropezaiq made aware of patients cocci IgM AB results- positive. New orders pending.
--- NOTE | 2024-08-18 16:19 | PC.NURSE ---
Per pharmaxist, Tracey choe to administer 1400 dose of Zosyn late related to patient being at procedure. Per pharmacy go ahead and give it and then you can continue his regular schedule.
[2024-08-18] MEDS: FLUCONAZOLE 100 MG TABLET 400 MG PO (16:26)
[2024-08-19] VITALS (10 sets, daily range): BP systolic 121–152; BP diastolic 75–88; PULSE 81–99; RESP 16–88; TEMP 36.1–36.7; O2SAT 91–96
[2024-08-19] MEDS: HYDROcodone/APAP 5/325 TABLET 1 TAB PO ×2 (02:03→17:46)
[2024-08-19] MEDS: PIPER/TAZO 3.375 GM 3.375 GM/50 ML BAG IV ×2 (05:41→21:10)
[2024-08-19 06:42] LABS: Basophils % (Auto) 0 % (0-2.5); Eosinophils # (Auto) 1.6 Thou/mm3 (0.0-0.5); Eosinophils % (Auto) 14 % (0-10); Hematocrit 39.9 % (41.0-53.0); Hemoglobin 14.1 g/dL (13.5-16.0); Immature Granulocytes % (Auto) 1 % (0-0); Immature Granulocytes Auto 0.09 Thou/mm3 (0.00-0.00); Lymphocytes # (Auto) 0.7 Thou/mm3 (1.0-4.8); Lymphocytes % (Auto) 6 % (10-50); Mean Corpuscular HGB Conc 35.3 g/dl (31.0-37.0); Mean Corpuscular Hemoglobin 30.8 pg (25.0-35.0); Mean Corpuscular Volume 87 fL (80-100); Monocytes # (Auto) 0.9 Thou/mm3 (0.0-0.8); Monocytes % (Auto) 8 % (0-12); Neutrophils # (Auto) 8.2 Thou/mm3 (1.8-7.7); Neutrophils % (Auto) 71 % (37-80); Nucleated Red Blood Cell % 0 /100 WBC (0); Platelet Count 160 Thou/mm3 (140-440); RDW Standard Deviation 41.8 fL (35.1-43.9); Red Blood Count 4.58 Miln/mm3 (4.50-5.90); White Blood Count 11.5 Thou/mm3 (3.8-10.6)
[2024-08-19 06:59] LABS: Alanine Aminotransferase 41 U/L (10-49); Albumin, Serum 2.6 gm/dL (3.5-5.0); Albumin/Globulin Ratio 0.8 (1.2-2.2); Alkaline Phosphatase 250 U/L (46-116); Anion Gap 8 (7-16); Aspartate Amino Transferase 32 U/L (0-34); BUN/Creatinine Ratio 17 Ratio (12-20); Blood Urea Nitrogen 12 mg/dL (9-23); Calcium 7.7 mg/dL (8.3-10.6); Calcium (Corrected) 8.8 mg/dL (8.5-10.1); Carbon Dioxide 26.5 mMol/L (20.0-31.0); Chloride 102 mMol/L (98-107); Creatinine (Component) 0.7 mg/dL (0.6-1.3); Estimated Creatinine Clearance 133.4 mL/min (>60); Globulin 3.4 gm/dL (2.3-3.5); Glucose 233 mg/dL (74-106); Magnesium 1.8 mg/dL (1.6-2.6); Osmolality,Calculated 278 (275-295); Potassium 3.9 mMol/L (3.4-5.1); Sodium 136 mMol/L (136-145); eGFR > 60 See Note
[2024-08-19] MEDS: INSULIN LISPRO (AdmeLOG) 1 UNIT/0.01 ML UNIT SC ×3 (07:57→17:42)
[2024-08-19] MEDS: FLUCONAZOLE 100 MG TABLET 400 MG PO (09:05)
[2024-08-19] MEDS: Magnesium Sulfate 2 GM Ivpb 2 GM/50 ML BAG IV (09:05)
[2024-08-19] MEDS: POTASSIUM CHLORIDE 20 mEq TABCR PO (09:06)
[2024-08-19] MEDS: INSULIN GLARGINE (Lantus) 5 UNIT/0.05 ML (PER 5 UNITS) 3 UNIT SC (09:07)
[2024-08-19] MEDS: ENOXAPARIN SOD INJ 40 MG/0.4 ML SYRINGE SC (09:08)
[2024-08-19] MEDS: SODIUM CHLORIDE 0.9% 1000 ML 1,000 ML 100 ML IV (09:12)
[2024-08-19] MEDS: INSULIN LISPRO (AdmeLOG) 1 UNIT/0.01 ML UNIT 3 UNIT SC ×2 (11:53→17:41)
[2024-08-19] MEDS: Lisinopril 2.5 MG TABLET 10 MG PO (11:56)
--- NOTE | 2024-08-19 14:14 | ESPR_ITS ---
<Statement entered by Hipolito Baker MD - 08/19/24 18:34> Patient was seen and examined at the bedside this morning. Patient reported that he feels better since yesterday. We added lisinopril given patient blood pressure slightly elevated. Patient is currently on fluconazole for cocci. Will continue with ceftriaxone and azithromycin and wait for final blood cultures as patient came septic. HIDA scan showed normal gallbladder ejection fraction. Blood sugars were elevated therefore insulin Lantus was increased to 18 units and 2 units were added with meals. Patient will be given metformin, Tresiba and freestyle harpal 3 plus on discharge. Anticipating discharge tomorrow. All labs and orders were reviewed. I saw and examined the patient, and I agree with current management stated by Dr Sacha MD,PGY1. Plan of care was discussed with the attending physician and resident physician. Disclaimer: Despite multiple revisions, due to the dictation software being used, the document bellow may not be free of grammatical errors including phonetic/typographic errors. However, this does not deter from our commitment to providing health care in the patient's best interest in mind. Dr. Samuel MD, PGY 2 Documentation for date of: 08/19/24 Subjective Subjective Interval history: No overnight events reported for patient. Patient examined at bedside. Improved work of breathing off nasal cannula and decreased crackles at bedside. Patient denied pyrexia or chest pain. Pleuritic chest pain still present but improved from initial admission. No lower pedal edema noted. Patient's HIDA negative, no need to follow-up. Patient still pending blood cultures and sputum cultures final results. Continue antibiotics and fluconazole until results come in. Exam Vital Signs Temp Pulse Resp BP Pulse Ox O2 Del Method O2 Flow Rate 98.0 F 97 18 148/84 H 92 L Room Air 3 08/19/24 12:00 08/19/24 12:00 08/19/24 12:00 08/19/24 12:08/19/24 12:08/19/24 12:08/19/24 07:10 Narrative Exam General Appearance: Alert & Oriented X3, well-nourished male who is lying in bed in no acute distress. HEENT: Skull symmetrical and atraumatic. Conjunctivae pink and moist. Pupils equal, round, reactive to light and accommodation (PERRL). External ear without lesion or discharge. Straight, nares patient, mucosa pink, no discharge. No thyroid nodule appreciated. No cervical lymphadenopathy. Cardio: Normal Rate and Rhythm with S1 and S2 heart sounds. No murmurs or extra heart sounds auscultated. No bruits on carotid auscultation. No peripheral edema or cyanosis. Lungs: Symmetric with good expansion. Chest and back non-tender. Breath sounds vesicular with only mild crackles. Abdomen: Non-tender, Non-distended, Normal Reactive Bowel Sounds Neuro: Alert, cooperative, oriented to person, place, and time. Speech clear. CN grossly intact. Upper motor strength 5/5 and Lower motor strength 5/5. Sensation intact. Objective Labs 08/19/24 05:35 08/19/24 05:35 Labs: Laboratory Results - last 24 hr 08/17/24 08/19/24 17:10 05:35 WBC 11.5 H RBC 4.58 Hgb 14.1 Hct 39.9 L MCV 87 MCH 30.8 MCHC 35.3 RDW Std Deviation 41.8 Plt Count 160 Neut % (Auto) 71 Lymph % (Auto) 6 L [place] % (Auto) 8 Eos % (Auto) 14 H Baso % (Auto) 0 Neut # (Auto) 8.2 H Lymph # (Auto) 0.7 L [place] # (Auto) 0.9 H Eos # (Auto) 1.6 H Baso # (Auto) 0.0 Immature Gran # (Auto) 0.09 H Absolute Nucleated RBC 0.00 Immature Gran % 1 H Nucleated RBC % 0 Sodium 136 Potassium 3.9 Chloride 102 Carbon Dioxide 26.5 Anion Gap 8 BUN 12 Creatinine 0.7 Estim Creat Clear Calc 133.4 eGFR > 60 BUN/Creatinine Ratio 17 Glucose 233 H D Calculated Osmolality 278 Calcium 7.7 L Corrected Calcium 8.8 Phosphorus 3.0 Magnesium 1.8 Total Bilirubin 1.0 AST 32 ALT 41 Alkaline Phosphatase 250 H D Total Protein 6.0 Albumin 2.6 L Globulin 3.4 Albumin/Globulin Ratio 0.8 L Coccidioides IgM Ab Positive A Quality Measures Quality Measures VTE prophylaxis Assessment & Plan Assessment Current Active Medications: Generic Name Dose Route Start Last Admin Trade Name Freq PRN Reason Stop Dose Admin Acetaminophen 650 mg 08/18/24 00:01 Acetaminophen 325 Mg Tablet PO 09/17/24 00:00 Q6H PRN Fever >101.5 Hydrocodone Bitart/Acetaminophen 1 tab 08/18/24 00:01 08/19/24 02:03 Hydrocodone/Apap 5/325 Tablet PO 08/23/24 00:00 1 tab Q4HR PRN Administration PAIN SCALE 4-6 (Moderate Albuterol/Ipratropium 3 ml 08/18/24 05:41 Albuterol/Ipratropium (Duoneb) Rt Vee 3 Ml Nebu INH 09/17/24 06:59 Q6HRRT PRN SHORTNESS OF BREATH OR WHEEZE Dextrose 25 ml 08/17/24 23:54 Dextrose 50%-Water Inj 50 Ml Syringe IV 09/16/24 23:53 Q15MIN PRN BG 50-70 responsive npo pt Dextrose 50 ml 08/17/24 23:54 Dextrose 50%-Water Inj 50 Ml Syringe IV 09/16/24 23:53 Q15MIN PRN BG <50 OR BG <70 & pt unresponsive Enoxaparin Sodium 40 mg 08/18/24 09:00 08/19/24 09:08 Enoxaparin Sod Inj 40 Mg/0.4 Ml Syringe SC 09/01/24 08:59 40 mg QDAY THAIS Administration Fluconazole 400 mg 08/18/24 15:30 08/19/24 09:05 Fluconazole 100 Mg Tablet PO 08/25/24 15:29 400 mg QDAY THAIS Administration Glucagon 1 mg 08/17/24 23:54 Glucagon Inj 1 Mg Vial IM Q15MIN PRN BG <70, and no IV access Guaifenesin/Dextromethorphan 1 each 08/18/24 05:41 Guaifenesin/Dm Tablet PO 09/17/24 05:40 BID PRN COUGH Piperacillin/Tazobactam/Dextrose 3.375 gm in 50 mls @ 12.5 mls/hr 08/18/24 06:00 08/19/24 05:41 Zosyn IV 08/25/24 05:59 12.5 mls/hr Q8HR THAIS Administration Sodium Chloride 1,000 mls @ 100 mls/hr 08/18/24 00:15 08/19/24 09:12 Ns IV 09/17/24 00:14 100 mls/hr .Q10H THAIS Administration Insulin Glargine 18 unit 08/20/24 09:00 Insulin Glargine (Lantus) 5 Unit/0.05 Ml (Per 5 Units) SC 09/19/24 08:59 QDAY THAIS Insulin Human Lispro 0 unit 08/18/24 11:47 08/19/24 11:53 Insulin Lispro (Admelog) 1 Unit/0.01 Ml Unit SC 09/17/24 07:29 15 unit AC THAIS Administration Protocol Insulin Human Lispro 3 unit 08/19/24 12:00 08/19/24 11:53 Insulin Lispro (Admelog) 1 Unit/0.01 Ml Unit SC 09/18/24 11:59 3 unit TIDWM [facility] Administration Lisinopril 10 mg 08/19/24 10:30 08/19/24 11:56 Lisinopril 2.5 Mg Tablet PO 09/18/24 10:29 10 mg QDAY THAIS Administration Plan Patient is a 54 year old male with past medical history of leukemia in remission since 2007 who presented to the ED on 08/17/2024 with shortness of breath, cough, back pain, poor appetite, and weakness beginning 15 days ago, found to have bilateral pneumonia and cholecystitis on imaging and admitted for further management. #Pneumonia Cocci. #Sepsis, secondary to Pneumonia, resolved. #Acute hypoxic respiratory failure, resolved. Patient met 4/4 SIRS criteria with HR 120, RR 28, Temp 102.4, and WBC 14.6, and sepsis source pneumonia. CXR shows bilateral infiltrate confirmed on CT, significant in the left lower lung. Blood Cultures negative 48 hours. Urine mixed kay. Sputum gram stain showed RARE GPC with no wbcs, and epithelia cells <10. No need to escalate antibiotics given blood cultures are negative and WBCs counts continue to improve with no pyrexia reported. This is likely pneumonia secondary to cocci. Patient improved work of breathing and currently off nasal cannula. Continue to monitor oxygen saturation. Plan: -Zosyn 3.375 g q8h (08/18/2024) -->d/c tomorrow. -Flucanazole 400 mg Qday -Acetaminophen as needed for fever or pain -Zofran as needed for nausea -[place] 5-325 as needed for severe pain -DuoNebs as needed -Mucinex as needed -Chest physiology -Supplemental oxygen, wean as tolerated, move towards stopping #Hyperglycemia, #Newly diagnosed type 2 diabetes On admission initial glucose 377. A1c 9.9. Patient is not aware of any previous diagnosis of diabetes. Patient was informed and educated on this diagnosis at the time of admission. Patient does not meet criteria for high-dose or moderate dose statins. Plan -Insulin glargine 18 U daily -Lispro 3 units TID scheduled -Insulin lispro sliding scale, adjusted as necessary -Carb consistent low diet -Consulted home lighting adviser -Diabetes education #Cirrhosis #Splenomegaly #History of leukemia CT abdomen/pelvis showed cirrhosis and significant splenomegaly. ALT 63 greater than AST 52, as patient is obese possibly secondary to fatty liver disease. Patient denied heavy alcohol use, stated only drinks alcohol occasionally/socially. Splenomegaly can also be associated with leukemia, even after remission. Hepatitis negative. Patient is not sure of chem therapy name but was diagnosed in 2005 and entered remission in 2007. MELD-Na score 19 Plan: -Educated on reduction of alcohol intake -Monitor liver panel #Elevated Transiminitis #Elevated total bili On admission patient had elevated AST's and ALT's. Patient denied history of alcohol use disorder and only drinks occasionally. Patient has a history of chemotherapy. Patient tested positive for cocci breast reactive transaminitis likely. Hepatitis panel negative. Consider HIV testing . Plan Continue to monitor AST's and ALT's #Cholecystitis, stable On physical exam Puente sign negative, patient denied shoulder pain, patient denied abdominal tenderness. Positive for pleuritic pain, mostly localized to posterior back. Total bili slightly elevated at 1.3. Transaminitis likely secondary to reactive given cocci pneumonia. HIDA scan negative, normal gallbladder ejection fraction. Given negative HIDA findings and unremarkable abdominal physical exam, no need for acute intervention. Please follow up with your PCP for elective treatment if needed. Diagnostics: HIDA negative; gallbladder wall abnormality thickened 0.97 enlarged pancreatic head. Abdomen/pelvis CT cholecystitis contracted gallbladder. Plan: -No acute intervention -General surgery was consulted, Dr Begum #Nonobstructing left renal calculi, incidental finding DVT prophylaxis: Lovenox 40 U subQ GI prophylaxis: None Diet: low carb consistent Fuentes: None Lines: Peripheral IV CODE STATUS: FULL - The patient's plan was discussed with attending Dr. Duff and senior residents Dr. Samuel Goncalves MD PGY1 Internal Medicine Attending Provider Attestation/Addendum I attest that I was physically present for the evaluation, physical examination, lab and imaging review of the patient with the residents. I discussed the case with the residents and agree with the findings and plans of care as documented above. At bedside, patient appears comfortable, saturating well on room air.? States that his shortness of breath has been improving.? Denies any fever overnight.? We will continue with fluconazole.? Blood glucose noted to be high, we will adjust her insulin regimen.? HIDA scan showed normal ejection fraction.? Discussed with surgery, recommended medical management and no need for surgery now.? Pending blood cultures. Nancy Duff MD
--- NOTE | 2024-08-19 15:51 | PC.CC ---
Attempted PA for Tianshenge 3 Plus, however, unable to verify eligibility on covermymeds. Will follow-up tomorrow.
[2024-08-20] VITALS: BP 128/70; PULSE 82; RESP 18; TEMP 36.8; O2SAT 90
[2024-08-20 04:00] VITALS: BP 133/77; PULSE 88; RESP 16; TEMP 37.1; O2SAT 94
[2024-08-20] MEDS: PIPER/TAZO 3.375 GM 3.375 GM/50 ML BAG IV (05:14)
[2024-08-20 05:51] LABS: Basophils # (Auto) 0.1 Thou/mm3 (0.0-0.2); Basophils % (Auto) 1 % (0-2.5); Eosinophils # (Auto) 2.3 Thou/mm3 (0.0-0.5); Eosinophils % (Auto) 17 % (0-10); Hematocrit 41.9 % (41.0-53.0); Hemoglobin 14.7 g/dL (13.5-16.0); Immature Granulocytes % (Auto) 1 % (0-0); Immature Granulocytes Auto 0.11 Thou/mm3 (0.00-0.00); Lymphocytes # (Auto) 0.8 Thou/mm3 (1.0-4.8); Lymphocytes % (Auto) 6 % (10-50); Mean Corpuscular HGB Conc 35.1 g/dl (31.0-37.0); Mean Corpuscular Hemoglobin 30.2 pg (25.0-35.0); Mean Corpuscular Volume 86 fL (80-100); Monocytes # (Auto) 0.9 Thou/mm3 (0.0-0.8); Monocytes % (Auto) 7 % (0-12); Neutrophils % (Auto) 69 % (37-80); Nucleated Red Blood Cell % 0 /100 WBC (0); Platelet Count 164 Thou/mm3 (140-440); RDW Standard Deviation 40.9 fL (35.1-43.9); Red Blood Count 4.86 Miln/mm3 (4.50-5.90); White Blood Count 13.1 Thou/mm3 (3.8-10.6)
[2024-08-20 06:37] LABS: Alanine Aminotransferase 43 U/L (10-49); Albumin, Serum 2.7 gm/dL (3.5-5.0); Albumin/Globulin Ratio 0.7 (1.2-2.2); Alkaline Phosphatase 291 U/L (46-116); Anion Gap 8 (7-16); Aspartate Amino Transferase 44 U/L (0-34); BUN/Creatinine Ratio 14 Ratio (12-20); Bilirubin,Total 1.1 mg/dL (0.3-1.2); Blood Urea Nitrogen 10 mg/dL (9-23); Carbon Dioxide 26.1 mMol/L (20.0-31.0); Chloride 100 mMol/L (98-107); Creatinine (Component) 0.7 mg/dL (0.6-1.3); Estimated Creatinine Clearance 133.4 mL/min (>60); Globulin 3.8 gm/dL (2.3-3.5); Glucose 123 mg/dL (74-106); Osmolality,Calculated 268 (275-295); Phosphorous 2.8 mg/dL (2.4-5.1); Potassium 4.1 mMol/L (3.4-5.1); Sodium 134 mMol/L (136-145); Total Protein 6.5 gm/dL (5.7-8.2); eGFR > 60 See Note
[2024-08-20] MEDS: INSULIN LISPRO (AdmeLOG) 1 UNIT/0.01 ML UNIT SC ×2 (07:56→11:51)
[2024-08-20] MEDS: INSULIN LISPRO (AdmeLOG) 1 UNIT/0.01 ML UNIT 3 UNIT SC ×2 (07:56→11:52)
[2024-08-20 08:00] VITALS: BP 143/77; PULSE 90; RESP 16; TEMP 36.4; O2SAT 93
[2024-08-20] MEDS: INSULIN GLARGINE (Lantus) 5 UNIT/0.05 ML (PER 5 UNITS) 18 UNIT SC (09:18)
[2024-08-20] MEDS: ENOXAPARIN SOD INJ 40 MG/0.4 ML SYRINGE SC (09:19)
[2024-08-20 09:20] VITALS: BP 143/77; PULSE 90
[2024-08-20] MEDS: FLUCONAZOLE 100 MG TABLET 400 MG PO (09:20)
[2024-08-20] MEDS: Lisinopril 2.5 MG TABLET 10 MG PO (09:20)
--- NOTE | 2024-08-20 09:23 | PC.SS ---
SS follow up note; Patient will possibly discharge today.
[2024-08-20] MEDS: AMOXICILLIN/POT CLAV 875 TABLET 1 TAB PO (09:38)
[2024-08-20] MEDS: HYDROcodone/APAP 5/325 TABLET 1 TAB PO (09:41)
--- NOTE | 2024-08-20 11:16 | PC.NURSE ---
Patient on 2L saturating at 92% at rest. No O2 at rest patient saturating at 90. Patient no O2 sitting at bedside saturating at 90. Patient no O2 ambulating saturating at 90. Will continue to monitor patient.
[2024-08-20] MEDS: LEVOFLOXACIN 250 MG TABLET 750 MG PO (11:51)
[2024-08-20 12:00] VITALS: BP 148/86; PULSE 95; RESP 15; TEMP 36.7; O2SAT 90
--- NOTE | 2024-08-20 12:42 | PC.NURSE ---
Notified Dr. Baker patient and have questions before discharging. Dr. Baker will notify interns patient has questions. Will continue to monitor patient
[2024-08-20 14:03] VITALS: PULSE 89; RESP 18; RESP 93; O2SAT 93
--- NOTE | 2024-08-20 14:07 | ESDS_ITS ---
<Statement entered by Hipolito Baker MD - 08/20/24 14:12> I saw and examined the patient, and I agree with current management stated by Dr Sacha MD,PGY1. Plan of care was discussed with the attending physician and resident physician. Disclaimer: Despite multiple revisions, due to the dictation software being used, the document bellow may not be free of grammatical errors including phonetic/typographic errors. However, this does not deter from our commitment to providing health care in the patient's best interest in mind. Dr. Samuel MD, PGY 2 Planned Discharge Date 08/20/24 DS: Providers Provider Date of admission: 08/18/24 00:01 Primary care physician: Physician No Primary/Family Admitting Provider: Kishan Russell MD Attending Provider on Admission: Nancy Duff MD Consults: 08/17/24 23:56 Consult to General Surgery Routine Comment: Consulting Provider: Blanka Begum 08/18/24 03:32 Referral Registered Dietitian Routine Comment: New diagnosis of diabetes Instructions: I updated the patient on diagnosis and brief overview of diabetes. Patient has history of diabetes in mother and brother. Thank you! Attending Provider on DC: Janice Goncalves MD Discharging Provider: Janice Goncalves MD DS: Diagnosis Problem List Completed Was Problem List Reviewed/Reconciled?: Yes Hospital Course Hospital Course Hospital course: Summary: Patient is a 54 year old male with past medical history of leukemia in remission since 2007 who presented to the ED on 08/17/2024 with shortness of breath, cough, back pain, poor appetite, and weakness beginning 15 days ago, found to have bilateral pneumonia and cholecystitis on imaging and admitted for further management and tested positive for cocci and sputum culture positive GNR. ER Course: -Initial vitals were BP 154/80, HR 120, RR 28, Temp 102.4, O2 90% on room air. -Labs significant for WBC 14.6, glucose 377, Hgb A1c 9.9, lactic acid 2.6->2.0, phosphorus 1.8, total bilirubin 1.3, AST 52, ALT 63, alk phos 309, lipase 60, procal 0.30 -CXR showed extensive bilateral pneumonia -COVID, flu negative -RLE venous Doppler showed no DVT -Gallbladder US showed cholecystitis, enlarged pancreatic head. -CT abdomen/pelvis with con showed bilateral pneumonia, significant left base, cirrhosis, significant splenomegaly, cholecystitis with contracted gallbladder, nonobstructing left renal calculi. -In the ED, patient was given acetaminophen 650 mg x1, 2L NS IV fluid bolus, ceftriaxone 1 g IV x1, metronidazole 500 ml IV x1 -Patient was admitted for sepsis secondary to pneumonia, surgery also consulted for cholecystitis Hospital Course: On floors patient's sepsis secondary to pneumonia improved after initiation of Zosyn and fluid resuscitation. Patient then tested positive for cocci, pneumonia secondary to cocci and started on fluconazole 400 mg daily please continue given upon discharge for 2 to 3 months. Please follow-up with your primary. Sputum cultures tested positive for Klebsiella pneumoniae, and upon discharge patient switched from Zosyn to levofloxacin for outpatient continued treatment. Pneumonia superimposed with cocci and bacterial. Blood cultures negative. On admission, ultrasound of gallbladder showed cholecystitis and enlarged pancreatic head. HIDA showed normal gallbladder ejection fraction 47%. Puente sign negative. Patient previously was on chemotherapy for leukemia and was told medication side effect included hepatomegaly and splenomegaly, patient cannot recall chemotherapy medication. Patient tested negative for hepatitis and HIV. Denied history of alcohol use disorder. New diagnosis of diabetes mellitus type 2 with an A1c of 9.9 on admission. Patient was discharged on met formin 500 mg twice daily and Tresiba. Freestyle harpal 3 added as well. Nonobstructing left renal calculi, incidental finding consider outpatient follow-up. Instructions: Please continue fluconazole 400 mg once a day for the next 2 months for valley fever Please continue Levofloxacin 750 mg oral for 7 more days for pneumonia Please continue albuterol inhaled 1 puff up to 4 times a day as needed for wheezing Please start degludec 20 units at night subcu for diabetes mellitus Please continue metformin 500 mg twice a day for diabetes Please check your morning glucose with a goal of 80-130 before meals. Please keep blood sugars under 200 with meals. Please continue lisinopril 10 mg once a day for high blood pressure Continue the rest of your medication as prescribed Home oxygen as needed -Please follow up with your primary care provider within one week of discharge -If your symptoms worsen,please seek immediate medical attention and return to your nearest emergency room -If you do not have a primary care provider, you may follow up at the [facility] at [address], [place] [address], Disposition: Home #Pneumonia Cocci and GNR #Sepsis, secondary to Pneumonia, resolved. #Acute hypoxic respiratory failure, resolved. #Hyperglycemia, improved #Newly diagnosed type 2 diabetes #Cirrhosis #Splenomegaly #History of leukemia #Cholecystitis, stable #Elevated Transiminitis #Elevated total bili #Nonobstructing left renal calculi, incidental finding - The patient's plan was discussed with attending Dr. Duff and senior residents Dr. Samuel Goncalves MD PGY1 Internal Medicine Time Spent with Patient Time attestation: Total time spent providing and/or coordinating discharge services: at least 35 minutes Exam Vital Signs Temp Pulse Resp BP Pulse Ox O2 Del Method O2 Flow Rate 98.0 F 89 18 148/86 H 93 L Room Air 2 08/20/24 12:00 08/20/24 14:03 08/20/24 14:03 08/20/24 12:08/20/24 14:03 08/20/24 12:00 08/20/24 08:00 Narrative Exam General Appearance: Alert & Oriented X3, well-nourished male who is lying in bed in[no acute distress HEENT: Skull symmetrical and atraumatic. Conjunctivae pin and moist. Pupils equal, round, reactive to light and accommodation (PERRL). External ear without lesion or discharge. Straight, nares patient, mucosa pink, no discharge. No thyroid nodule appreciated. No cervical lymphadenopathy. Cardio: Normal Rate and Rhythm with S1 and S2 heart sounds. No murmurs or extra heart sounds auscultated. No bruits on carotid auscultation. No peripheral edema or cyanosis. Lungs: Symmetric with good expansion. Chest and back non-tender. Breath sounds vesicular improved with minimal rhonchi. Abdomen: Non-tender, Non-distended, Normal Reactive Bowel Sounds Neuro: Alert, cooperative, oriented to person, place, and time. Speech clear. CN grossly intact. Upper motor strength 5/5 and Lower motor strength 5/5. Sensation intact. Discharge Plan Plan Patient Disposition: HOME (Self Care) Patient condition on transfer: Stable Care Plan Goals: Instructions: Please continue fluconazole 400 mg once a day for the next 2 months for valley fever Please continue Levofloxacin 750 mg oral for 7 more days for pneumonia Please continue albuterol inhaled 1 puff up to 4 times a day as needed for wheezing Please start degludec 20 units at night subcu for diabetes mellitus Please continue metformin 500 mg twice a day for diabetes Please check your morning glucose with a goal of 80-130 before meals. Please keep blood sugars under 200 with meals. Please continue lisinopril 10 mg once a day for high blood pressure Continue the rest of your medication as prescribed Home oxygen as needed -Please follow up with your primary care provider within one week of discharge -If your symptoms worsen,please seek immediate medical attention and return to your nearest emergency room -If you do not have a primary care provider, you may follow up at the [facility] [address], [place] [address], Phone Prescriptions/Referrals Prescriptions/Med Rec: New fluconazole 200 mg tablet 400 mg PO QDAY 30 Days Qty: 60 0RF Gvoke HypoPen 1-Pack 0.5 mg/0.1 mL auto-injector 0.5 mg subcut QDAY PRN (Reason: hypoglycemia) Qty: 0.1 0RF insulin degludec [Tresiba FlexTouch U-100] 100 unit/mL (3 mL) insulin pen 20 unit subcut HS Qty: 15 0RF metformin 500 mg tablet 500 mg PO BID Qty: 30 0RF Mucinex DM 30-600 mg Tablet Extended Release 12 Hr 1 tab PO BID PRN (Reason: Cough) 30 Days Qty: 30 0RF lisinopril 10 mg tablet 10 mg PO QDAY Qty: 30 0RF (DME) FreeStyle Harpal 3 Plus Sensor Device See Rx Instructions .Route Qty: 1 0RF Rx Instructions: As directed albuterol sulfate 90 mcg/actuation HFA aerosol inhaler 1 inh inhalation QID PRN (Reason: shortness of breath or wheezing) Qty: 6.7 0RF levofloxacin 750 mg tablet 750 mg PO QDAY 7 Days Qty: 7 0RF (DME) pen needle, diabetic [Ultra-Thin II Ins Pen [place]] 29 gauge x 1/2 needle See Rx Instructions .Route Qty: 100 0RF Rx Instructions: As directed Continued cetirizine 10 mg tablet 10 mg QDAY Patient Comments: TAKE 1 TABLET BY MOUTH EVERY DAY FOR 30 DAYS benzonatate 100 mg capsule 100 mg PO TID Patient Comments: TAKE 1 CAPSULE BY MOUTH THREE TIMES A DAY FOR 10 DAYS NEEDED fluticasone propionate 50 mcg/actuation spray,suspension 1 spray INTRANASAL BID Patient Comments: SPRAY 1 SPRAY INTO EACH NOSTRIL TWICE A DAY Discontinued azithromycin 250 mg tablet 250 mg QDAY Patient Comments: TAKE 2 TABLETS BY MOUTH TODAY, THEN TAKE 1 TABLET DAILY FOR 4 DAYS DIRECTED Referrals: No Primary/Family,Physician [Primary Care Provider] - Janice Goncalves MD [Resident] - Patient/Caregiver Discharge Instructions Education Materials: Controlling High Blood Pressure, What Is Pneumonia?, Treating Pneumonia, Your High Blood Pressure Risk Factors Print Language: German Stand Alone Forms: Traci Award Info., Patient Portal Info Letter Discharge Order Discharge Orders: Discharge (Routine); Ordered 08/20/24 Ordered By: Hipolito Baker Quality Discharge Quality Measures VTE prophylaxis Attestestation Attestation I attest that I was physically present for the evaluation, physical examination, lab and imaging review of the patient with the residents. I discussed the case with the residents and agree with the findings and plans of care as documented above. At bedside today, patient states she is feeling well. Complaining of some generalized weakness. Vital signs are stable, was able to walk around the room maintaining saturation of 90 or above. Lab results are stable. Had a long discussion with patient and his at bedside regarding his current condition. Answered all their questions to satisfaction. We will discharge home on oral fluconazole for 3 months and oral antibiotics. Recommended to follow-up with PCP in 1 to 2 weeks of discharge. We will also add some antihyperglycemic agents. Nancy Duff MD
--- NOTE | 2024-08-20 14:27 | PC.CC ---
Received approved PA for The New Daily 3 Plus sensor. Updated [facility] [place]. Item is on order.
== END 2024-08-20 13:46 | disposition home or self-care (01) | DRG 139 ==
LOC: SERX 21:58 → SERHOLD 08-18 01:08 → S3SX 08-18 02:55
PROVIDERS: Registered Nurse General Practice; Admitting Provider Internal Medicine; Emergency Provider Emergency Medicine; Visit Provider Student in an Organized Health Care Education/Training Program
DX: J18.9 Pneumonia, unspecified organism (principal); C95.91 Leukemia, unspecified, in remission; K85.90 Acute pancreatitis without necrosis or infection, unspecified; K81.0 Acute cholecystitis; E11.65 Type 2 diabetes mellitus with hyperglycemia; K74.60 Unspecified cirrhosis of liver; R16.1 Splenomegaly, not elsewhere classified; N20.0 Calculus of kidney; E66.9 Obesity, unspecified; Z68.30 Body mass index [BMI] 30.0-30.9, adult
CPT/HCPCS: 36415; 71045; 74177; 76705; 78227; 80048; 80053; 80061; 80074; 81001; 82010; 83036; 83605; 83615; 83690; 83735; 83880; 84100; 84145; 84153; 84484; 85025; 85610; 85730; 86635; 87040; 87077; 87081; 87086; 87186; 87205; 87400; 87502; 87811; 93005; 93971; 94664; 94667; 96361; 96365; 96367; 99285; A4649; A9537; J0696; J1650; J1815; J2543; J2805; J3475; J3490; J7030; Q9967; A9270; J1836

== ENCOUNTER → 2025-02-28 | Outpatient (CLI) | payer MEDICAID, SELFPAY ==
--- NOTE | 2025-02-28 11:00 | XR_ITS ---
Examination: Testicular sonography complete TECHNIQUE: Grayscale sonographic images testes, assessment arterial inflow venous outflow Doppler spectral analysis carful analysis Date and time: February 28, 2025 1141 hours INDICATIONS: Palpable lump right testicle note is beginning one year ago, diagnosis leukemia 15 years ago FINDINGS: Right testis 4.4 cm epididymis 1.9 cm 15 mm epididymal mass Arterial flow testicle. No testicular mass Left testis 4.2 cm Epididymis 14 mm Arterial flow testicle. No testicular mass Mild varicocele Mild bilateral hydroceles IMPRESSION: No testicular torsion or testicular mass Small solid right epididymal mass 14 x 12 x 15 mm, recommend 3 month follow-up
== END | disposition home or self-care (01) ==
PROVIDERS: Referring Provider Nurse Practitioner Primary Care; Visit Provider Nurse Practitioner Primary Care
DX: N50.89 Other specified disorders of the male genital organs (principal)
CPT/HCPCS: 76870

== ENCOUNTER → 2025-04-07 | Outpatient (CLI) | payer MEDICAID, SELFPAY ==
--- NOTE | 2025-04-07 15:30 | XR_ITS ---
Examination: CT chest with intravenous contrast 2-D sagittal and coronal reconstructions Exam date and time: April 07, 2025 1521 hours INDICATIONS: Fever coughing beginning August 2024, diagnosis coccidiomycosis CTDI:vol (mGy) 17.7 DLP: (mGycm) 620 Technique: Multiple axial sections of the thorax have been obtained. Sections have been obtained, 3 mm slice thickness. Mediastinal and lung density settings have been obtained. Intravenous contrast administered, 60 cc Isovue-370. 2-D sagittal, coronal images obtained. Low dose protocols were performed. One or more of the following dose reduction techniques were used; automated exposure control, adjustment of the mA and/or KV according to patient size, use of iterative reconstruction technique. Findings: No thoracic aortic aneurysm dilatation. No pulmonary artery filling defects Moderate calcification left anterior descending coronary artery. No paratracheal tracheobronchial or bronchopulmonary adenopathy. Parenchymal disease in the posterior segment left upper lobe, axial image 110 5 mm 3 mm pulmonary nodules left upper lobe image 114 3 mm pulmonary nodule left lower lobe image 157 Tiny miliary type nodules in the left lower lobe for instance axial image 170 No pulmonary edema No visualized liver or splenic lesion No gallstones No pancreatic mass Kidneys partially visualized no hydronephrosis IMPRESSION: Significant parenchymal disease posterior segment left upper lobe which may represent active infiltrate Multiple pulmonary nodules as above Recommend follow-up chest imaging to document clearing
== END | disposition home or self-care (01) ==
PROVIDERS: PCP Nurse Practitioner Primary Care; Referring Provider Nurse Practitioner Primary Care; Visit Provider Nurse Practitioner Primary Care
DX: R91.8 Other nonspecific abnormal finding of lung field (principal)
CPT/HCPCS: 71260; A4649; Q9967

== ENCOUNTER 2025-04-29 05:13 | Emergency (ER) | payer MEDICAID, SELFPAY ==
[2025-04-29 05:27] VITALS: BP 174/87; PULSE 87; RESP 17; TEMP 37.2; O2SAT 96
--- NOTE | 2025-04-29 05:40 | XR_ITS ---
Examination: Knee, right , 3 views Technique: Knee AP, lateral, oblique 3 views Date and time of exam: April 29, thousand 25, 0545 hrs. Indications: Right knee pain beginning 2 years ago Findings: Moderate to advanced tricompartment osteoarthritis Large knee effusion, seen with internal derangement of the knee Prominent osteopenia No acute fracture Impression: Moderate to advanced tricompartment osteoarthritis Large knee effusion, seen with internal derangement of the knee
--- NOTE | 2025-04-29 05:40 | PD.EDRME ---
Rapid Medical Screening Exam RME Arrival date/time: 04/29/25 05:13 55M with history of HTN and DM presents to ED with 1 week of R knee pain and swelling w/o fall/trauma. Patient has not had surgery there before. Patient denies other RLE involvement. Naproxen helps symptoms. Chief Complaint: Extremity Problem,Nontraumatic Vital signs: Vital Signs Temperature 98.9 F 04/29/25 05:27 Pulse Rate 87 04/29/25 05:27 Respiratory Rate 17 04/29/25 05:27 Blood Pressure 174/87 H 04/29/25 05:27 Pulse Oximetry (%) 96 04/29/25 05:27 Oxygen Delivery Method Room Air 04/29/25 05:27
[2025-04-29] MEDS: HYDROcodone/APAP 5/325 TABLET 1 TAB PO (05:47)
--- NOTE | 2025-04-29 10:10 | PD.EDEXREM ---
ED Extremity Problem RME/HPI General Chief complaint: Extremity Problem,Nontraumatic Stated complaint: RIGHT KNEE PAIN Time Seen by Provider: 04/29/25 06:09 Arrival date/time: 04/29/25 05:13 Limitations: no limitations RME / HPI RME / HPI Narrative: 04/29/25 05:13 55M with history of HTN and DM presents to ED with 1 week of R knee pain and swelling w/o fall/trauma. Patient has not had surgery there before. Patient denies other RLE involvement. Naproxen helps symptoms. Denies f,c,n,v. Denies rashes, IVDU, hx of STI. Related Data Home Medications ?Medication ?Instructions ?Recorded ?Confirmed benzonatate 100 mg capsule 100 mg PO TID 08/18/24 08/18/24 cetirizine 10 mg tablet 10 mg QDAY 08/18/24 08/18/24 fluticasone propionate 50 1 spray intranasal BID 08/18/24 08/18/24 mcg/actuation nasal spray,suspension Previous Rx's ?Medication ?Instructions ?Recorded blood-glucose sensor (FreeStyle #1 ea 08/19/24 Cory 3 Plus Sensor device) glucagon 0.5 mg/0.1 mL 0.5 mg (0.1 mL) subcut QDAY PRN 08/19/24 subcutaneous auto-injector (Gvoke hypoglycemia #0.1 mL HypoPen 1-Pack) insulin degludec 100 unit/mL (3 20 unit (0.2 mL) subcut HS #15 mL 08/19/24 mL) subcutaneous pen (Tresiba FlexTouch U-100 insulin) lisinopril 10 mg tablet 10 mg PO QDAY #30 tabs 08/19/24 metformin 500 mg tablet 500 mg PO BID #30 tabs 08/19/24 albuterol sulfate 90 mcg/actuation 1 inh inhalation QID PRN shortness 08/20/24 aerosol inhaler of breath or wheezing #6.7 grams pen needle, diabetic 29 gauge x #100 ea 08/20/24 1/2 (Ultra-Thin II Insulin Pen [place]) ibuprofen 800 mg tablet 800 mg PO Q8H PRN pain #10 tabs 04/29/25 Allergies Allergy/AdvReac Type Severity Reaction Status Date / Time No Known Allergies Allergy Verified 08/17/24 16:33 ED Exam General Limitations: Present no limitations General appearance: Present alert Head Head exam: Present atraumatic and normocephalic Eye Eye exam: Present normal appearance, PERRL and EOMI ENT ENT exam: Present normal exam and normal oropharynx Neck Neck exam: Present normal inspection and full ROM Chest Chest inspection: Present normal inspection and symmetric chest wall rise Respiratory Respiratory exam: Present normal lung sounds bilaterally; Absent respiratory distress Cardiovascular Cardiovascular exam: Present regular rate and normal rhythm Abdominal Exam Abdominal exam: Present soft; Absent distention Extremities Exam Extremities exam: Present other (RLE normal, LLE with ttp along medial border, mild swelling appreciated however no warmth or erythema , 2+ dp pulses , skin intact) Back Exam Back exam: Present normal inspection Course Quality Measures none Orders Category Date Time Status Crutches .NOW Care 04/29/25 10:04 Completed immobilizer [Splint / Immobilizer] STAT Care 04/29/25 10:04 Completed XR knee RT 3V Stat Exams 04/29/25 05:40 Completed HYDROcodone*/APAP 5/325 [[place] 5/325] Med 04/29/25 05:40 Discontinued 1 tab PO X1 ONE Ketorolac Inj [Toradol Inj] Med 04/29/25 10:04 Discontinued 15 mg IM X1 ONE Vital Signs Vital signs: Vital Signs Temperature 98.9 F 04/29/25 05:27 Pulse Rate 87 04/29/25 05:27 Respiratory Rate 17 04/29/25 05:27 Blood Pressure 174/87 H 04/29/25 05:27 Pulse Oximetry (%) 96 04/29/25 05:27 Oxygen Delivery Method Room Air 04/29/25 05:27 Extremity Problem MDM Narrative MDM Narrative:: right knee effusion, no redness or fluctuance, not warm patient states this happens on/off over last few years no risk factors for infectious joint at this time. Patient not toxic. given hx and exam concern for chronic degenerative changes. Less likely septic joint, autoimmune infl joint. Less likely ischemic limb given patien is neurovasc intact. Ordered xray, meds for symptom relief and knee immobilizer. XR left w/ severe arthritis and effusion. Had joint decision making conversation with patient discussed risk benefit of arthrocentesis, vs follow up with orthopedic surgeon as outpatient. Request outpatient follow up and would like to forego arthrocentesis at this time, which is reasonable given hx and exam. Dc to home with close return precuations and follow up with pcp and orthopedist. Patient data External records reviewed:: [facility] previous records Clinical information provided by:: patient and family Social determinants that could affect healthcare access:: none Patient has the following chronic illnesses:: chornic knee arthritis How is presenting disease/condition affected by chronic disease/condition?: exacerbated by Evaluation data The following diagnostics were reviewed and interpreted by me:: radiology exam(s) Lab and/or radiology exams considered but not ordered:: none Interpretation Summary: see mdm Medications / Prescriptions Medications or Prescriptions considered but not ordered:: none Medication administrations:: Medication Administration History Discontinued Medications Hydrocodone Bitart/Acetaminophen (Hydrocodone/[place] 5/325 Tablet) 1 tab PO X1 ONE Stop: 04/29/25 05:41 Last Admin: 04/29/25 05:47 Dose: 1 tab Documented By: AC Ketorolac Tromethamine (Ketorolac Inj 30 Mg/Ml Vial) 15 mg IM X1 ONE Stop: 04/29/25 10:05 Last Admin: 04/29/25 10:14 Dose: 15 mg Documented By: see above Consultations Consultation(s) initiated? (list below): No Diagnosis Most likely diagnosis given after review of the tests above:: arthritis severe knee effusion Admission Indicated Admission indicated?: not indicated Admission Request Was there a request for admission?: No Disposition Plan Disposition Plan: Discharge Discharge Attestation Discharge Attestation: The patient and all family members were given an opportunity to ask questions and understood the discharge instructions. Discharge instructions specifically effects, indications for sooner follow up or return to the emergency department, and the expected course of current diagnosis. Patient condition: Stable Discharge Plan Plan Patient Disposition: HOME (Self Care) Prescriptions/Referrals Prescriptions/Med Rec: New ibuprofen 800 mg tablet 800 mg PO Q8H PRN (Reason: pain) Qty: 10 0RF Rx Instructions: please take with food No Action cetirizine 10 mg tablet 10 mg QDAY Patient Comments: TAKE 1 TABLET BY MOUTH EVERY DAY FOR 30 DAYS benzonatate 100 mg capsule 100 mg PO TID Patient Comments: TAKE 1 CAPSULE BY MOUTH THREE TIMES A DAY FOR 10 DAYS NEEDED fluticasone propionate 50 mcg/actuation spray,suspension 1 spray INTRANASAL BID Patient Comments: SPRAY 1 SPRAY INTO EACH NOSTRIL TWICE A DAY Gvoke HypoPen 1-Pack 0.5 mg/0.1 mL auto-injector 0.5 mg subcut QDAY PRN (Reason: hypoglycemia) Qty: 0.1 0RF insulin degludec [Tresiba FlexTouch U-100] 100 unit/mL (3 mL) insulin pen 20 unit subcut HS Qty: 15 0RF metformin 500 mg tablet 500 mg PO BID Qty: 30 0RF lisinopril 10 mg tablet 10 mg PO QDAY Qty: 30 0RF (DME) FreeStyle Cory 3 Plus Sensor Device See Rx Instructions .Route Qty: 1 0RF Rx Instructions: As directed albuterol sulfate 90 mcg/actuation HFA aerosol inhaler 1 inh inhalation QID PRN (Reason: shortness of breath or wheezing) Qty: 6.7 0RF (DME) pen needle, diabetic [Ultra-Thin II Ins Pen [place]] 29 gauge x 1/2 needle See Rx Instructions .Route Qty: 100 0RF Rx Instructions: As directed Referrals: Dilcia ([facility]),Lizzette, LATHE SANDER-C [Primary Care Provider] - In 1 week Problem List Clinical Impression: Knee pain, right, Osteoarthritis, Effusion of knee Patient/Caregiver Discharge Instructions Education Materials: Arthritis: Exercise Additional Instructions: Por favor hacer garry con chavarria medico de cabecera dentro de 1-2 [place] para discutir el dolor de chavarria rodilla que jerel la radiografia es relacionado a chavarria arthritis severa. Usar el immobilizador de rodilla y muletas para prevenir mas desgaste. Print Language: German Stand Alone Forms: Traci Award Info., Patient Portal Info Letter
[2025-04-29] MEDS: KETOROLAC INJ 30 MG/ML VIAL 15 MG IM (10:14)
== END 2025-04-29 10:42 | disposition home or self-care (01) ==
PROVIDERS: Emergency Provider Emergency Medicine; PCP Nurse Practitioner Primary Care
DX: M17.11 Unilateral primary osteoarthritis, right knee (principal)
CPT/HCPCS: 73562; 99284; J1885; A9270